=== PATIENT | female | born 1935 | race Caucasian/White ===

== ENCOUNTER 2019-08-22 10:48 | Outpatient (CLI) | payer MEDICARE, BC, SELFPAY ==
--- NOTE | 2019-08-22 10:58 | MM_ITS ---
WS: [id number] LEFT DIGITAL MAMMOGRAPHY WITH CAD CLINICAL INFORMATION: HX OF BREAST CA (RT MAST). Prior right mastectomy. COMPARISON: July 29, 2018 TECHNIQUE: 3 views of the left breast were obtained. FINDINGS: The left breast is composed of heterogeneous fibroglandular density tissue, which can limit the detec tion of small underlying mass lesions. A few stable calcifications. No suspicious focal mass, asymmetry, calcifications, or architectural distortion. No evidence of zoey gnancy. MM/[place] [address] IMPRESSION: BI-RADS: 2-Benign FOLLOW UP: 1 Year Follow-up Recommend return to annual diagnostic mammography.
[2019-08-22 11:24] LABS: Basophils # 0.1 10^3/uL (0.0-0.1); Basophils % 1.5 %; Eosinophils # 0.2 10^3/uL (0.0-0.8); Eosinophils % 3.5 %; Hematocrit 43.8 % (37.0-47.0); Hemoglobin 13.7 g/dL (11.5-15.3); Lymphocytes # 1.3 10^3/uL (0.8-4.8); Lymphocytes % 19.2 %; Mean Corpuscular HGB Conc 31.3 g/dL (30.0-36.0); Mean Corpuscular Hemoglobin 31.5 pg (28.0-34.0); Mean Corpuscular Volume 100.7 fL (81-99); Mean Platelet Volume 10.3 fL (7.4-10.4); Monocytes # 0.4 10^3/uL (0.2-0.9); Monocytes % 6.2 %; Neutrophils # 4.7 10^3/uL (1.8-7.7); Neutrophils % 69.3 %; Nucleated Red Blood Cells % 0 %; Platelet Count 194 10^3/cmm (130-400); Red Blood Count 4.35 10^6/uL (4.1-5.3); Red Cell Distribution Width 11.9 % (12.1-15.1); White Blood Count 6.8 10^3/uL (4.0-10.0)
[2019-08-22 11:46] LABS: Alanine Aminotransferase 11 U/L (0-33); Alkaline Phosphatase 99 IU/L (35-105); Anion Gap 15.8 (5-19); Aspartate Amino Transferase 19 U/L (0-32); Blood Urea Nitrogen 13 mg/dL (8-23); Carbon Dioxide 25 mmol/L (22-29); Chloride 102 mmol/L (98-107); Globulin 3.5 g/dL (1.3-4.6); Glucose 123 mg/dL (65-115); Potassium 3.8 mmol/L (3.5-5.1); Sodium 139 mmol/L (136-145); Total Bilirubin 0.3 mg/dL (0.15-1.2); Total Protein 7.5 g/dL (6.6-8.7)
== END 2019-08-22 10:49 | disposition home or self-care (01) ==
LOC: ONCMED 10:54
PROVIDERS: Family Provider Family Medicine; PCP Family Medicine; Visit Provider Internal Medicine Medical Oncology
DX: Z85.3 Personal history of malignant neoplasm of breast (principal); Z90.11 Acquired absence of right breast and nipple; J43.9 Emphysema, unspecified; R91.8 Other nonspecific abnormal finding of lung field
CPT/HCPCS: 36415; 71250; 77065; 80053; 85025

== ENCOUNTER 2019-08-22 12:34 | Outpatient (CLI) | payer MEDICARE, BC, SELFPAY ==
--- NOTE | 2019-08-22 12:43 | CT_ITS ---
WS: [id number] CT CHEST WITHOUT INTRAVENOUS CONTRAST HISTORY: PULMONARY NODULES, BREAST CANCER TECHNIQUE: Contiguous 5 mm axial imaging performed on the thorax. Coronal and sagittal reformats are submitted. All CT scans at [facility] use at least one of these dose optimization techniq ues: automated exposure control; mA and/or kV adjustment per patient size (includes targeted exams wh ere dose is matched to clinical indication); or iterative reconstruction. CONTRAST: None DLP: 535.34 mGycm COMPARISON: 08/02/2018, 07/13/2017 and 07/14/2016 Lungs and central airway: Marked pulmonary hyperinflation from emphysema. Bandlike area of atelectasi s at the LEFT apex is stable. Slightly lobulated solid nodule in the RIGHT upper lobe measures 18 x 1 9 mm and has been stable over multiple prior examinations. There are additional smaller scattered pul monary nodules which are all stable. No new nodule or pneumonia. Pleura: Normal. No pleural effusion. Heart and pericardium: Normal size heart. No pericardial effusion. Mediastinum and annabella: No mediastinum or hilar adenopathy. Vessels: Mild atherosclerosis aorta. Aorta is ectatic without aneurysmal dilatation. Pulmonary artery size is equal to the aorta. Chest wall and lower neck: Fullness in the RIGHT neck may be a small thyroid nodule. Similar to prior studies. Prior RIGHT mastectomy and axillary janine dissection. Upper abdomen: Proximal aortic stent graft is identified. No adrenal mass. Exophytic cyst from the LE FT kidney is unchanged in size. Visualized liver is negative. Osseous structures: Increase in thoracic kyphosis. No osteoblastic or osteolytic bone disease. CT/CT chest wo con [id number] IMPRESSION: 1. Long-term stability of multiple bilateral pulmonary nodules. Largest in the RIGHT upper lobe measures 18 x 19 mm. 2. Chronic emphysema. 3. Prior RIGHT mastectomy.
== END 2019-08-22 12:35 | disposition home or self-care (01) ==
LOC: RADWPI 12:41
PROVIDERS: Family Provider Family Medicine; PCP Family Medicine; Visit Provider Internal Medicine Medical Oncology
DX: J43.9 Emphysema, unspecified (principal); R91.8 Other nonspecific abnormal finding of lung field; Z85.3 Personal history of malignant neoplasm of breast; Z90.11 Acquired absence of right breast and nipple
CPT/HCPCS: 71250

== ENCOUNTER 2019-08-27 08:39 | Outpatient (CLI) | payer MEDICARE, BC, SELFPAY ==
--- NOTE | 2019-08-31 08:34 | ONC FU_ITS ---
Dr. Frazier Patient Follow-Up Note Patient: Rosaura Shanks Unit #: [id number]: 1935 Dicatated By: Carroll Frazier M.D.Date of Visit:Aug 27, 2019 Onc Med Follow-up/Prog Note Chief Complaint: Breast cancer/pulmonary nodule. History of Present Illness: This is an 84 year-old woman with grade 3 infiltrating lobular carcinoma of the right breast, stage IIIA (T3, pN1a, M0), ER/WV positive, initially treated in 2001. I had seen her in June 2014 after she had been found to have a nodule in the upper lobe of the right lung. She had undergone right modified mastectomy in January 2002. She was given adjuvant chemotherapy, which I had suspected was 4 cycles of Adriamycin/cyclophosphamide, though I did not have records to verify that. She was then given prophylactic chest wall radiation. I do not believe she was given any adjuvant hormonal therapy. During followup there had been no evidence of recurrence. She was noted to have a small pulmonary nodule on chest x-ray in 2001, but that was stable from previous studies. In 2013 she was found to have an abdominal aortic aneurysm. A CT angiogram in March 2014 showed a large infrarenal abdominal aortic saccular aneurysm measuring 5.7 x 5.4 cm. It extended for a length of 9.7 cm. There was no evidence of aneurysmal leak or rupture. She was referred to Dr. Kelly Huffman in [place] for further management of the aneurysm, and she subsequently was found on chest x-ray to have a right upper lobe lung mass measuring 2.7 cm. She then had further evaluation with PET/CT on 07/04/2014. That study also confirmed a 2.7 cm mass in the medial right lung apex. It showed low-grade FDG uptake with SUV 1.1. It was felt to be most consistent with metastasis from low grade breast carcinoma. There were no other areas of abnormal uptake on that study. Given the high risk associated with the aneurysm, I did recommend that she have that treated prior to any further evaluation for the pulmonary nodule. She had surgery in August 2014 which apparently included a graft and 2 stents. She tolerated it well. A follow-up chest CT on 12/30/2014 showed persistent right upper lobe mass lesion measuring 1.9 x 2 x 2.4 cm. It did appear stable compared to the PET/CT in June 2014. A peripheral subpleural nodule in the right upper lobe measuring 5 mm and a 6.6 mm right middle lobe nodule also appeared stable. At that point she remained on observation/expectant management. She had followup CT scans in June 2015 and again in December 2015 with no change in the noncalcified right upper lobe pulmonary nodules. Her other medical illnesses include hypertension, hypercholesterolemia, degenerative arthritis, and osteoporosis. She also has COPD. She underwent resection of a parathyroid adenoma in 2002. Her only other prior surgery was a hysterectomy with bilateral salpingo-oophorectomy in 1981. In May 2016 she had Mohs surgery performed with grafting for a skin cancer on her forehead. She has a history of smoking for 50 years, previously up to 2 packs of cigarettes daily. She had cut down to 1/2 pack daily. INTERIM HISTORY: Surveillance CT scan of the chest performed 07/14/2016 showed stable right upper lobe pulmonary nodule measuring 2.0 x 1.7 cm. The remaining scattered calcified and noncalcified subcentimeter pulmonary nodules were stable also. There were no new nodules noted. There was stable marked ectasia and atherosclerosis of the thoracic aorta. Repeat chest CT on 07/13/2017 showed stable noncalcified right upper lobe nodule measuring 1.9 x 2.1 cm. The 6 mm right middle lobe nodule and the 3.6 mm subpleural nodule in the right middle lobe also appeared stable. Her repeat chest CT on 08/02/2018 showed long-term stability of noncalcified pulmonary nodules, including the right upper lobe nodule which measured 1.8 x 2.0 cm. There also was evidence of severe emphysema. She continued on observation/expectant management. Her chest CT on 08/22/2019 showed marked pulmonary hyperinflation from emphysema. Bandlike atelectasis at the left apex appeared stable. The slightly lobulated solid nodule in the right upper lobe measured 18 x 19 mm and appeared stable over multiple prior studies. Additional smaller scattered pulmonary nodules also appeared stable. There was no mediastinal or hilar adenopathy noted. She is seen for a followup visit. She has been feeling pretty good generally other than she had been sick for 3 to 4 weeks with a cold, and with that illness her cough had been worse, though nonproductive. Her energy is so-so. She still has normal activity. ECOG score is 0. She has good appetite, but her weight is down a few pounds. She has no fever or night sweats. She was having sinus drainage, that has resolved. She still has some cough. She has shortness of breath, but that is about the same. She does not complain of chest pain. She has no GI or complaints other than some constipation, which she manages adequately with MiraLAX. She says her right collarbone recently has been sore. She has no other joint or bone pain. She complains that she has always had headaches, and those are no worse. She has neuropathy in her feet, also unchanged. Medications: AmLODIPine Besylate 1 (5 mg) Tablet Oral daily, Aspirin 1 (81 mg) Tablet Oral daily, Atorvastatin Calcium 1 (40 mg) Tablet Oral daily, B-12 1 (1000 mcg) Tablet Oral q on Every Other Day, Calcium-Carb 600 1 (600 mg) Tablet Oral b.i.d., Lisinopril 1 (40 mg) Tablet Oral daily, Metoprolol Succinate ER 1 Tablet Tablet SR 24 HR Oral b.i.d., Prolia (60 mg/mL) Subcutaneous Take as Directed Allergies: No Known Allergies. Review of Systems: Constitutional - Her energy level is good. She is able to do all her normal daily activities. Appetite is good. Her weight is down a few pounds. No fever, chills, hot flashes, or night sweats. ECOG score is 0, ENMT - No current sinus congestion/drainage, but she does report having recent cold symptoms. No mouth sores. No sore throat or difficulty swallowing, Hematologic/Lymphatic - She bruises easily, Respiratory - She has some shortness of breath with activity. She has a non-productive cough. No pleuritic pain or hemoptysis, Cardiovascular - No angina pain. No palpitations, Gastrointestinal - No nausea or vomiting. No heartburn or acid reflux. No diarrhea. She has constipation but it is well controlled with Miralax. No blood in the stool or black stools, Genitourinary (F) - No dysuria or hematuria. No urinary frequency. No urgency or incontinence, Musculoskeletal - She has some soreness to her right collar bone, which started a few weeks ago. Denies any injury, Integumentary - No skin complications, Neurologic - She has chronic headaches. No dizziness. She has neuropathy in her feet, Psychiatric - No anxiety or depression. No insomnia. Vital Signs: Performed on Aug 27, 2019 08:54 Height - 62.00 in Weight - 106.6 lbs (LOW) BSA - 1.46 sq.m BMI - 19.50 Temperature - 97.2 F (LOW) Pulse - 60 /min Respiration - 19 /min BP - 123/79 mm(hg) O2 Sat - 92 % (LOW) Pain - 0 Physical Examination: Constitutional - She looks pretty good generally, Eyes - Sclerae nonicteric. Conjunctivae clear, ENMT - No lesions noted in the oral cavity, Hematologic/Lymphatic - No cervical, clavicular, or axillary adenopathy, Respiratory - Lungs sound clear with diminished air movement, Cardiovascular - Heart rhythm is regular. There is no murmur, gallop, or rub noted, Abdomen - Soft. Liver and spleen are not enlarged. There is no abdominal mass or ascites noted. There is no inguinal adenopathy, Extremities - No edema, Neurologic - No focal neurologic deficits noted. Lab/Imaging: Test performed on Aug 22, 2019 11:05 Sodium 139 mmol/L Potassium 3.8 mmol/L Chloride 102 mmol/L CO2 25 mmol/L Anion Gap 15.8 BUN 13 mg/dL Creatinine 0.7 mg/dL Cr Clearance (Est) 48.6300 mL/min Glucose 123 mg/dL Calcium 10.0 mg/dL Protein, Total 7.5 g/dL Albumin 4.0 g/dL Globulin 3.5 g/dL Bilirubin, Total 0.3 mg/dL ALT (SGPT) 11 U/L AST (SGOT) 19 U/L Alkaline Phosphatase 99 IU/L WBC 6.8 10 3/uL RBC 4.35 10 6/uL HGB 13.7 g/dL HCT 43.8 % MCV 100.7 fL MCH 31.5 pg MCHC 31.3 g/dL RDW 11.9 % Platelet Count 194 10 3/cmm MPV 10.3 fL Neutrophils 4.7 10 3/uL Lymphocytes 1.3 10 3/uL Monocytes 0.4 10 3/uL Eosinophils 0.2 10 3/uL Basophils 0.1 10 3/uL Neutrophil % 69.3 % Lymphocyte % 19.2 % Monocyte % 6.2 % Eosinophil % 3.5 % Basophils % 1.5 % Impression: 1. Patient has grade 3 infiltrating lobular carcinoma the right breast, stage IIIA, ER/WV positive. Her treatment included right modified radical mastectomy in January 2002 followed by adjuvant chemotherapy and prophylactic chest wall radiation. Thus far there has been no documented recurrence. 2. She was found to have a large abdominal aortic aneurysm in March 2014. She underwent surgery for the aneurysm in August 2014. 3. During evaluation for the aneurysm she was found to have a right upper lobe pulmonary nodule. This showed low grade FDG uptake by PET. There were no other areas of abnormal uptake on that study, but there were additional, smaller pulmonary nodules present. The appearance was felt to be most consistent with a low-grade metastasis. She has been managed expectantly, and on follow-up studies the pulmonary nodule has remained stable. Her other medical illnesses include: 4. Hypertension. 5. Hyperlipidemia. 6. Degenerative arthritis. 7. Osteoporosis. 8. She underwent resection of a parathyroid adenoma in 2002. 9. She has nicotine dependence (cigarettes). During follow-up her surveillance CT scans have shown no change in the right upper lobe pulmonary nodules or other smaller scattered nodules, now over a time period of 5 years. During this time her clinical status has also remained stable. As such, the likelihood of malignancy is extremely low. Plan: She remains on observation/expectant management. At this point she can just continue her regular follow-up with Dr. Felton. I do not think that any additional surveillance imaging is necessary. Other than continuing her regular yearly mammogram, she should have further CT scanning only as indicated based on symptoms. I will see her again only as needed. Signed By: Carroll Frazier M.D. <<Signature on File>>
== END 2019-08-27 08:40 | disposition home or self-care (01) ==
LOC: ONCMED 08:45
PROVIDERS: Family Provider Family Medicine; PCP Family Medicine; Visit Provider Internal Medicine Medical Oncology
DX: Z08 Encounter for follow-up examination after completed treatment for malignant neoplasm (principal); Z85.3 Personal history of malignant neoplasm of breast; R91.8 Other nonspecific abnormal finding of lung field; J44.9 Chronic obstructive pulmonary disease, unspecified; I10 Essential (primary) hypertension; E78.5 Hyperlipidemia, unspecified; M19.90 Unspecified osteoarthritis, unspecified site; M81.0 Age-related osteoporosis without current pathological fracture; F17.210 Nicotine dependence, cigarettes, uncomplicated; Z79.82 Long term (current) use of aspirin; Z79.899 Other long term (current) drug therapy; Z90.11 Acquired absence of right breast and nipple; Z92.21 Personal history of antineoplastic chemotherapy; Z92.3 Personal history of irradiation
CPT/HCPCS: G0463

== ENCOUNTER 2019-09-25 09:59 | Outpatient (CLI) | payer MEDICARE, BC, SELFPAY ==
[2019-09-25 10:00] VITALS: BP 141/76; PULSE 54; RESP 16; TEMP 36.5; O2SAT 93
[2019-09-25] MEDS: denosumab 60 mg SDV SUBCUT (10:11)
[2019-09-25 10:18] VITALS: BP 141/84; PULSE 54; RESP 16; TEMP 37; O2SAT 93
== END 2019-09-25 10:00 | disposition home or self-care (01) ==
LOC: RHEOACUTE 10:01
PROVIDERS: Family Provider Family Medicine; PCP Family Medicine; Visit Provider Internal Medicine Rheumatology
DX: M81.0 Age-related osteoporosis without current pathological fracture (principal)
CPT/HCPCS: 96372; J0897

== ENCOUNTER 2019-12-05 14:50 | Outpatient (CLI) | payer MEDICARE, BC, SELFPAY ==
--- NOTE | 2019-12-05 15:23 | XR_ITS ---
WS: [id number] SCREENING DEXA SCAN [employer] HISTORY: 84 years old Female with OSTEOPOROSIS COMPARISON: None available. FINDINGS: The L1-L4 bone mineral density measures 1.187 g/cm2. This corresponds to a T score of 0.1 and Z score of 2.5. Left femoral neck bone mineral density measures 0.647 g/cm2. This corresponds to T score of -2.9 and Z score of -0.3. Right femoral neck bone mineral density measures 0.648 g/cm2. This corresponds to a T score of -2.9 a nd Z score of -0.3. Mean femoral neck bone mineral density measures 0.647 g/cm2. This corresponds to a T score of -2.9 an d Z score of -0.3. XR/XR DEXA axial skeleton* [id number] IMPRESSION: Patient's FRAX calculated 10 year probability for major osteoporotic fracture i s 24.0% and osteoporotic hip fracture is 14.7%. Osteopenia.
== END 2019-12-05 14:51 | disposition home or self-care (01) ==
LOC: RADWPI 14:54
PROVIDERS: Family Provider Family Medicine; PCP Family Medicine; Visit Provider Family Medicine
DX: M81.0 Age-related osteoporosis without current pathological fracture (principal)
CPT/HCPCS: 77080

== ENCOUNTER 2020-03-18 09:04 | Outpatient (CLI) | payer MEDICARE, BC, SELFPAY ==
--- NOTE | 2020-03-18 09:10 | MR_ITS ---
WS: [id number] MRI BRAIN WITH AND WITHOUT CONTRAST HISTORY: NEOPLASM OF UNCERTAIN BEHAVIOR OF SKIN COMPARISON: None available. TECHNIQUE: Multiplanar imaging performed through the brain with Prohance 9 ml's IV. No acute infarcts are seen. Nichols-white matter differentiation is well preserved. Moderate chronic dena rovascular ischemic changes in the periventricular white matter. No appreciable temporal region abnor mality. No susceptibility artifacts or prior lacunar infarcts. Ventricles and extra-axial spaces are normal. Clivus and pituitary gland are normal. Visualized posterior fossa and brainstem are also normal. Postcontrast images are negative for masses or vascular malformations. Dural venous sinuses are normal. Paranasal sinuses: Well aerated with no significant disease. Mastoid air cells: Normal. Calvarium and scalp: Normal. MR/MR head wo/w con [id number] IMPRESSION: 1. No metastatic disease or enhancing masses. 2. Moderate chronic microvascular ischemic disease.
[2020-03-18 09:54] LABS: Blood Urea Nitrogen 13 mg/dL (8-23)
== END 2020-03-18 09:05 | disposition home or self-care (01) ==
PROVIDERS: PCP Family Medicine; Visit Provider Specialist
DX: D48.5 Neoplasm of uncertain behavior of skin (principal); I67.82 Cerebral ischemia
CPT/HCPCS: 36415; 70553; 82565; 84520; A9579

== ENCOUNTER 2020-04-29 12:23 | Outpatient (CLI) | payer MEDICARE, BC, SELFPAY ==
--- NOTE | 2020-04-29 14:13 | N.ONRAD NP_ITS ---
Radiation Oncology Consult Patient: Rosaura Shanks MR#: [id number] : 1935> Attending Physician: Dr. Edward Turpin Date of Service: 04/29/2020 Rosaura Shanks was seen in consultation this afternoon for evaluation regarding adjuvant radiotherapy for the management of her recently diagnosed basal cell carcinoma. She presented to the otolaryngology office with a complaint of decreased hearing in the left ear. Otoscopic examination did not find a mass within the external auditory canal. An MRI of the brain ordered on March 18, 2020 did not demonstrate evidence of metastatic disease. A biopsy performed by Joe Massey M.D. on March 26, 2020 diagnosed a nodular type basal cell carcinoma extending to the base and lateral edges. I have been asked to evaluate the patient for definitive radiotherapy. The patient's past medical history is significant for abdominal aortic aneurysm, breast cancer, COPD, hyperlipidemia, hypertension, and osteoarthritis and skin cancer (basal cell carcinoma). Her previous surgical interventions include cataract surgery, Mohs microsurgery, parathyroidectomy, and mastectomy (right breast). I have reviewed the patient's medication profile which is available in the electronic medical record. She denied any drug allergies. The patient's family history was unremarkable for cutaneous malignancies or xeroderma pigmentosum. The patient was accompanied to this consultation by her daughter. She described a tobacco habit tobacco habit (1 pack/day for 62 years) and denied alcohol intake. On review of systems, she did not report any constitutional complaints including fevers of unknown origin or unintentional weight loss. She described reduced hearing in the left ear but no other head neck complaints including diplopia, tinnitus, epistaxis, or dysphagia. She denied any cardiopulmonary symptoms such as angina, or palpitations. She does have a chronic cough. On gastrointestinal review, she disavowed nausea or diarrhea. On musculoskeletal review, she did not relate any bone pain or muscle weakness. There were no neurological symptoms such as headaches, paresthesias, or seizures. On physical examination, the patient has an ECOG performance status of 0. She was 5 feet 2 inches tall and weighed 106 pounds. The temperature was 97.2???F. The blood pressure was 133/79 mmHg. The pulse was 61 bpm and the respiratory rate of was 22. The head was normocephalic and atraumatic. The oral cavity had moist mucous membranes and no oropharyngeal exudate was present. The external auditory canal was partially obstructed with an erythematous lesion approximately 1 cm into the canal. There was no pre-auricular nor post auricular adenopathy. I did not date any cervical adenopathy or thyromegaly. Normal fremitus was noted. Bronchovesicular breath sounds were auscultated in the posterior lung abreu. Bilateral inspiratory wheezes were present. Cardiac sounds were regular in rate and rhythm but distant. No JVD noted. The abdomen had active bowel sounds. No tenderness to palpation. No evidence of organomegaly. No muscle weakness upon testing. No tenderness to deep palpation along the axial skeleton. Cranial nerves II through XII were intact. Gait was normal. In summary, the patient presented to the otolaryngology office with a complaint of decreased hearing in the left ear. Otoscopic examination did not find a mass within the external auditory canal. An MRI of the brain ordered on March 18, 2020 did not demonstrate evidence of metastatic disease. A biopsy performed by Joe Massey M.D. on March 26, 2020 diagnosed a nodular type basal cell carcinoma extending to the base and lateral edges. I have been asked to evaluate the patient for definitive radiotherapy. I discussed with the patient the potential role of radiotherapy. I also expressed concern regarding significant hearing loss given the location within the external auditory canal. I would like to request an evaluation with the department of radiation oncology at [facility] in [facility] for which the patient and her would like to discuss to making a decision.. Signed by: Dr. Edward Turpin 04/29/2020 2:13:01 PM
== END 2020-04-29 12:24 | disposition home or self-care (01) ==
LOC: ONCMED 12:30
PROVIDERS: PCP Family Medicine; Visit Provider Radiology Radiation Oncology
DX: C44.219 Basal cell carcinoma of skin of left ear and external auricular canal (principal); H91.92 Unspecified hearing loss, left ear; E78.5 Hyperlipidemia, unspecified; I10 Essential (primary) hypertension; I71.4 Abdominal aortic aneurysm, without rupture; J44.9 Chronic obstructive pulmonary disease, unspecified; F17.210 Nicotine dependence, cigarettes, uncomplicated; M19.90 Unspecified osteoarthritis, unspecified site; Z85.3 Personal history of malignant neoplasm of breast
CPT/HCPCS: 99203; 99213

== ENCOUNTER 2020-06-24 14:40 | Outpatient (CLI) | payer MEDICARE, BC, SELFPAY ==
[2020-06-24 14:55] VITALS: BP 150/84; PULSE 60; RESP 16; TEMP 36.1; O2SAT 92
[2020-06-24 15:00] VITALS: BMI 19.8
[2020-06-24] MEDS: denosumab 60 mg SDV SUBCUT (15:03)
--- NOTE | 2020-06-24 15:10 | PC.NURSE ---
1455 Pt arrived A&Ox4. Denies pain, signs or symptoms of infection, cough. Denies medical history. Denies respiratory, heart, neuro history.
--- NOTE | 2020-06-24 15:11 | PC.NURSE ---
Pt ambulated to bathroom and returned from bathroom wheezing. States she smoked a cig prior to arrival. Pt denies wheezing. Audible wheezing noted. Pox 94 on room air. Pt states she takes inhalers and numerous medications but that breathing is better than it used to be. When questioned, pt verbalized frustration with waiting for Prolia appt and waiting after injection. Discussed at length.
--- NOTE | 2020-06-24 15:31 | PC.NURSE ---
Pt denies SOB or pain. States she just wants to go.
[2020-06-24 15:32] VITALS: BP 141/87; PULSE 56; RESP 18; TEMP 36.2; O2SAT 94
== END 2020-06-24 14:41 | disposition home or self-care (01) ==
LOC: RHEOACUTE 14:41
PROVIDERS: PCP Family Medicine; Visit Provider Internal Medicine Rheumatology
DX: M81.0 Age-related osteoporosis without current pathological fracture (principal)
CPT/HCPCS: 96372; J0897

== ENCOUNTER 2020-08-11 15:47 | Inpatient (IN) | payer MEDICARE, BC, SELFPAY ==
[2020-08-11] VITALS (56 sets, daily range): BP systolic 123–148; BP diastolic 72–102; PULSE 54–133; RESP 16–35; TEMP 37.1–37.3; O2SAT 79–100; BMI 19.8
--- NOTE | 2020-08-11 15:59 | XR_ITS ---
WS: [id number] Exam: XR chest 1V portable [id number] Date/Time of Exam: 08/11/2020 4:09 PM Reason For Exam: dyspnea/cough Comparison 08/11/2020. Patchy infiltrates again noted in the mid and lower right lung are unchanged. The lungs are hyperinfl ated. Small right pleural effusion. 2 cm nodular density seen along the right margin of the superior mediastinum is unchanged since multiple prior exams. Status post right mastectomy with surgical clips along the right axilla. Bony structures are intact. The mediastinum is not widened. Surgical clips i n the base of the neck on the left. Aortic Endo stent partially visualized in the upper abdomen. XR/XR chest 1V portable [id number] IMPRESSION: 1. Patchy infiltrates in the mid and lower right lung consistent with pneumonia showing little change. Small right pleural effusion. 2. Pulmonary hyperinflation and emphysematous changes. 3. Additional chronic findings in the chest as detailed above.
--- NOTE | 2020-08-11 15:59 | ECG_ITS ---
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
--- NOTE | 2020-08-11 16:00 | XR_ITS ---
WS: [id number] Exam: XR thoracic spine 3V* [id number] Date/Time of Exam: 08/11/2020 4:09 PM Reason For Exam: back pain/hx breast Ca Comparison 12/11/2018. No fracture or dislocation. Osteopenia. Slightly increased thoracic kyphosis noted. Slight dextroscol iosis. Paraspinal soft tissues are unremarkable. Incidentally noted are small posterior pleural effus ions. Abdominal aortic Endo stent noted. XR/XR thoracic spine 3V* [id number] IMPRESSION: 1. Minimal degenerative change and osteopenia. 2. No fracture, bone destruction or malalignment. 3. Additional minor findings as detailed above.
--- NOTE | 2020-08-11 16:12 | W.ED.SOB ---
HPI - SOB/Dyspnea General: Chief Complaint: Shortness of Breath/Dyspnea Stated Complaint: fluid on lungs Time Seen by Provider: 08/11/20 15:58 History of Present Illness: HPI Narrative: 85-year-old female who presents emergency room with complaint of shortness of breath tachypnea progressively worsening over the last several days. She was at Dr. Felton's office for primary care doctor today and found to have a room air sat in the low 70s and sent to the emergency room for further work-up. With 3 L/min her respiratory rate and her oxygen sat both improved with her sats going up to 95 to 97%. When I came in the room in the ER she was on 2 L/min was satting in the mid to upper 80s and was conversationally dyspneic when turned up to 4 L she improved to upper 90s. 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 Chest x-ray at her primary care doctor showed a right small right pleural effusion. She has a pleuritic-like chest pain that is worse with deep breath and with cough. She has a nonproductive cough has not had a fever at all. Dr. Felton reported usually her baseline mental status is very good she has extremely good cognition and awareness today she was little more confused and lethargic according to him. She tells me she has some chest pain earlier today with rest but that has resolved. She not get diaphoretic with it. MD elicited complaint: shortness of breath and cough Onset (ago): day(s) Timing: intermittent Severity: moderate Exacerbating factors: exertion, movement and inspiration Relieving factors: oxygen and rest Known history of: other (Breast CA) Associated symptoms: Reports nausea; Deny abdominal pain, chest congestion, chest pain, cough, diaphoresis, dizziness, extremity pain, fever(s), hemoptysis, lightheadedness, myalgias, orthopnea, palpitations, paresthesias, polydipsia, polyuria, rash, sense of impending doom, syncope or vomiting Treatment prior to arrival: oxygen Review of Systems Const: Denies: fever(s) or diaphoresis ENMT: Denies: throat pain, ear or mastoid pain, nasal discharge or nasal congestion Card: Denies: chest pain, palpitations, lightheadedness, syncope or orthopnea Resp: Denies: hemoptysis or chest congestion GI: Reports: nausea; Denies: abdominal pain or vomiting : Denies: flank pain, difficulty voiding, dysuria, urinary frequency or urinary urgency Musc: Denies: extremity pain Skin/Breast: Denies: rash or pruritus Neuro: Denies: dizziness Endo: Denies: polyuria or polydipsia PFSH ED PFSH: Medical History (Updated 08/13/20 @ 15:22 by Freddy Orourke DO) Aneurysm, thoracic aortic s/p coiling 2017 Breast cancer Hyperlipidemia Hypertension Social History (Updated 08/11/20 @ 19:13 by Sophie Pruitt MD) Smoking and tobacco status: never smoked Physical Exam Const: COMMON NORMALS: no acute distress GENERAL APPEARANCE: cooperative and comfortable ORIENTATION/CONSCIOUSNESS: Yes awake, Yes oriented to person, Yes oriented to place and Yes oriented to time HENMT: COMMON NORMALS: normocephalic, atraumatic, hearing grossly normal bilaterally, external ears normal, EAC's normal, TM's normal bilaterally, Normal nasal mucous membranes and turbinates present, moist oral mucous membranes and oropharynx normal HEAD & SCALP: normocephalic and atraumatic NOSE: Normal nasal mucous membranes and turbinates present EXTERNAL EAR: Yes external ears normal EXTERNAL AUDITORY CANAL: EAC's normal TYMPANIC MEMBRANE: TM's normal bilaterally Eye: COMMON NORMALS: Equal, round and reactive pupils present, EOMs intact bilaterally, conjunctivae normal and no scleral icterus CONJUNCTIVA: Yes conjunctivae normal PUPIL: Yes Equal, round and reactive pupils present Neck/C-Spine: COMMON NORMALS: full ROM, no lymphadenopathy, supple and no JVD Lymph: LYMPHATIC: no lymphadenopathy noted and no lymphedema noted Resp: COMMON NORMALS: No use of accessory muscles EFFORT & INSPECTION: Yes tachypneic AUSCULTATION: rhonchi, wheezes and diminished lung sounds Cardio: COMMON NORMALS: no JVD, regular rate, regular rhythm and No murmurs present (Cardio) RATE: regular rate RHYTHM: regular rhythm GI: COMMON NORMALS: Soft to palpation and No hepatosplenomegaly present AUSCULTATION: Yes normoactive bowel sounds PALPATION: Yes Soft to palpation, No Tenderness to palpation present (GI), No Guarding due to palpation present (GI) and Yes No hepatosplenomegaly present Extremity: COMMON NORMALS: normal to inspection, capillary refill normal, no clubbing, cyanosis or edema, no calf tenderness and no pedal edema Neuro: SENSORIUM/ORIENTATION: Yes oriented to person, Yes oriented to place and Yes oriented to time Skin: COMMON NORMALS: no rashes or lesions noted GENERAL SKIN EXAM: no rashes or lesions noted Course Vital Signs: Vital signs: Vital Signs Temperature 97.2 F L 08/14/20 03:53 Pulse Rate 60 08/14/20 05:31 Respiratory Rate 20 H 08/14/20 03:53 Blood Pressure 138/76 08/14/20 03:53 Pulse Oximetry 95 08/14/20 03:53 MDM - SOB/Dyspnea MDM Narrative: Medical decision making narrative: Patient positive for Covid with increasing oxygen needs. We will go ahead and admit to cover for secondary pneumonia start remdesivir dexamethasone discussed with Dr. Pruitt orders have been written. Lab Data: Labs: Lab Results 08/11/20 08/11/20 08/11/20 Range/Units 16:16 16:16 16:16 WBC 7.5 (4.0-10.0) 10^3/ uL RBC 4.53 (4.1-5.3) 10^6/u L Hgb 13.6 (11.5-15.3) g/dL Hct 43.3 (37.0-47.0) % MCV 95.6 (81-99) fL MCH 30.0 (28.0-34.0) pg MCHC 31.4 (30.0-36.0) g/dL RDW 12.5 (12.1-15.1) % Plt Count 302 (130-400) 10^3/c mm MPV 9.7 (7.4-10.4) fL Neut % (Auto) 82.2 % Lymph % (Auto) 7.3 % Clay % (Auto) 7.9 % Eos % (Auto) 0.0 % Baso % (Auto) 0.5 % Neut # (Auto) 6.16 (1.8-7.7) 10^3/u L Lymph # (Auto) 0.6 L (0.8-4.8) 10^3/u L Clay # (Auto) 0.6 (0.2-0.9) 10^3/u L Eos # (Auto) 0.0 (0.0-0.8) 10^3/u L Baso # (Auto) 0.0 (0.0-0.1) 10^3/u L Nucleated RBC % (a uto) 0 % Nucleated RBCs # 0.0 /100WBC D-Dimer (0-0.59) ug/mIFE U Specimen Type Sample Site ABG pH (7.35-7.45) ABG pCO2 (35-45) mmHg ABG pO2 (80.0-100.0) mmH g ABG HCO3 (22-26) mmol/L ABG O2 Saturation ABG Base Excess (-2.0-2.0) mmol/ L Jaleel Test A-a O2 Gradient (5-10) mmHg Hematocrit (37-47) % Hgb O2 Saturation (95-100) % Carboxyhemoglobin (0.4-20.1) %THgb Methemoglobin (0.4-1.5) % Total Hemoglobin (12-16) g/dL Ionized Calcium (1.1-1.4) mmol/L O2 Delivery Device O2 Liters/Min % FiO2 % Assistant Front Office Manager ID Sodium 142 (136-145) mmol/L Potassium 4.2 (3.5-5.1) mmol/L Chloride 102 (98-107) mmol/L Carbon Dioxide 28 (22-29) mmol/L Anion Gap 16.2 (5-19) BUN 30 H (8-23) mg/dL Creatinine 0.9 (0.5-0.9) mg/dL GFR Calculation Not Reportable Glucose 110 (65-115) mg/dL Calculated Osmolal ity 301 H (285-295) mOsm/k g Calcium 8.6 (8.5-10.5) mg/dL Total Bilirubin 0.7 (0.15-1.2) mg/dL AST 43 H (0-32) U/L ALT 28 (0-33) U/L Alkaline Phosphata se 88 (35-105) IU/L Troponin T Baselin e 27 H (0-10) ng/L Total Protein 7.5 (6.6-8.7) g/dL Albumin 3.6 (3.5-5.2) g/dL Globulin 3.9 (1.3-4.6) g/dL Urine Color (Yellow) Urine Appearance (CLEAR) Urine pH (5-7) Ur Specific Gravit y (1.005-1.030) Urine Protein (Negative) Urine Glucose (UA) (Normal) Urine Ketones (Negative) Urine Blood (Negative) Urine Nitrate (Negative) Urine Bilirubin (Negative) Urine Urobilinogen (Negative) mg/dL Ur Leukocyte Rosa M ase (Negative) Urine RBC (0-2) /hpf Urine WBC (0-5) /hpf Ur Squamous Epith Cells (0-5) /hpf Ur Renal Epithelia l Cell /hpf Amorphous Sediment /hpf Urine Bacteria (NONE) /hpf SARS-CoV-2 Ag (Rap id) (Negative) 08/11/20 08/11/20 08/11/20 Range/Units 16:16 16:34 16:35 WBC (4.0-10.0) 10^3/ uL RBC (4.1-5.3) 10^6/u L Hgb (11.5-15.3) g/dL Hct (37.0-47.0) % MCV (81-99) fL MCH (28.0-34.0) pg MCHC (30.0-36.0) g/dL RDW (12.1-15.1) % Plt Count (130-400) 10^3/c mm MPV (7.4-10.4) fL Neut % (Auto) % Lymph % (Auto) % Clay % (Auto) % Eos % (Auto) % Baso % (Auto) % Neut # (Auto) (1.8-7.7) 10^3/u L Lymph # (Auto) (0.8-4.8) 10^3/u L Clay # (Auto) (0.2-0.9) 10^3/u L Eos # (Auto) (0.0-0.8) 10^3/u L Baso # (Auto) (0.0-0.1) 10^3/u L Nucleated RBC % (a uto) % Nucleated RBCs # /100WBC D-Dimer 4.76 H (0-0.59) ug/mIFE U Specimen Type Arterial Sample Site Radial, left ABG pH 7.49 H (7.35-7.45) ABG pCO2 38.0 (35-45) mmHg ABG pO2 69.7 L (80.0-100.0) mmH g ABG HCO3 29.2 H (22-26) mmol/L ABG O2 Saturation 95.1 ABG Base Excess 5.6 H (-2.0-2.0) mmol/ L Jaleel Test Pos A-a O2 Gradient 18.1 H (5-10) mmHg Hematocrit 39.4 (37-47) % Hgb O2 Saturation 93.2 L (95-100) % Carboxyhemoglobin 1.2 (0.4-20.1) %THgb Methemoglobin 0.8 (0.4-1.5) % Total Hemoglobin 12.9 (12-16) g/dL Ionized Calcium 1.1 (1.1-1.4) mmol/L O2 Delivery Device Nc O2 Liters/Min 4.0 % FiO2 36.0 % Assistant Front Office Manager ID Cak Sodium 144.0 H (136-145) mmol/L Potassium 3.4 L (3.5-5.1) mmol/L Chloride (98-107) mmol/L Carbon Dioxide (22-29) mmol/L Anion Gap (5-19) BUN (8-23) mg/dL Creatinine (0.5-0.9) mg/dL GFR Calculation Glucose 112.0 (65-115) mg/dL Calculated Osmolal ity (285-295) mOsm/k g Calcium (8.5-10.5) mg/dL Total Bilirubin (0.15-1.2) mg/dL AST (0-32) U/L ALT (0-33) U/L Alkaline Phosphata se (35-105) IU/L Troponin T Baselin e (0-10) ng/L Total Protein (6.6-8.7) g/dL Albumin (3.5-5.2) g/dL Globulin (1.3-4.6) g/dL Urine Color (Yellow) Urine Appearance (CLEAR) Urine pH (5-7) Ur Specific Gravit y (1.005-1.030) Urine Protein (Negative) Urine Glucose (UA) (Normal) Urine Ketones (Negative) Urine Blood (Negative) Urine Nitrate (Negative) Urine Bilirubin (Negative) Urine Urobilinogen (Negative) mg/dL Ur Leukocyte Rosa M ase (Negative) Urine RBC (0-2) /hpf Urine WBC (0-5) /hpf Ur Squamous Epith Cells (0-5) /hpf Ur Renal Epithelia l Cell /hpf Amorphous Sediment /hpf Urine Bacteria (NONE) /hpf SARS-CoV-2 Ag (Rap id) Positive H (Negative) 08/11/20 Range/Units 17:15 WBC (4.0-10.0) 10^3/ uL RBC (4.1-5.3) 10^6/u L Hgb (11.5-15.3) g/dL Hct (37.0-47.0) % MCV (81-99) fL MCH (28.0-34.0) pg MCHC (30.0-36.0) g/dL RDW (12.1-15.1) % Plt Count (130-400) 10^3/c mm MPV (7.4-10.4) fL Neut % (Auto) % Lymph % (Auto) % Clay % (Auto) % Eos % (Auto) % Baso % (Auto) % Neut # (Auto) (1.8-7.7) 10^3/u L Lymph # (Auto) (0.8-4.8) 10^3/u L Clay # (Auto) (0.2-0.9) 10^3/u L Eos # (Auto) (0.0-0.8) 10^3/u L Baso # (Auto) (0.0-0.1) 10^3/u L Nucleated RBC % (a uto) % Nucleated RBCs # /100WBC D-Dimer (0-0.59) ug/mIFE U Specimen Type Sample Site ABG pH (7.35-7.45) ABG pCO2 (35-45) mmHg ABG pO2 (80.0-100.0) mmH g ABG HCO3 (22-26) mmol/L ABG O2 Saturation ABG Base Excess (-2.0-2.0) mmol/ L Jaleel Test A-a O2 Gradient (5-10) mmHg Hematocrit (37-47) % Hgb O2 Saturation (95-100) % Carboxyhemoglobin (0.4-20.1) %THgb Methemoglobin (0.4-1.5) % Total Hemoglobin (12-16) g/dL Ionized Calcium (1.1-1.4) mmol/L O2 Delivery Device O2 Liters/Min % FiO2 % Assistant Front Office Manager ID Sodium (136-145) mmol/L Potassium (3.5-5.1) mmol/L Chloride (98-107) mmol/L Carbon Dioxide (22-29) mmol/L Anion Gap (5-19) BUN (8-23) mg/dL Creatinine (0.5-0.9) mg/dL GFR Calculation Glucose (65-115) mg/dL Calculated Osmolal ity (285-295) mOsm/k g Calcium (8.5-10.5) mg/dL Total Bilirubin (0.15-1.2) mg/dL AST (0-32) U/L ALT (0-33) U/L Alkaline Phosphata se (35-105) IU/L Troponin T Baselin e (0-10) ng/L Total Protein (6.6-8.7) g/dL Albumin (3.5-5.2) g/dL Globulin (1.3-4.6) g/dL Urine Color Yellow (Yellow) Urine Appearance Sl hazy (CLEAR) Urine pH 5 (5-7) Ur Specific Gravit y 1.020 (1.005-1.030) Urine Protein 1+ H (Negative) Urine Glucose (UA) Norm (Normal) Urine Ketones Negative (Negative) Urine Blood 2+ H (Negative) Urine Nitrate Negative (Negative) Urine Bilirubin 1+ H (Negative) Urine Urobilinogen 4 H (Negative) mg/dL Ur Leukocyte Rosa M ase 2+ H (Negative) Urine RBC 0-4 H (0-2) /hpf Urine WBC >100 H (0-5) /hpf Ur Squamous Epith Cells 15-25 H (0-5) /hpf Ur Renal Epithelia l Cell 0-4 /hpf Amorphous Sediment 1+ /hpf Urine Bacteria 2+ H (NONE) /hpf SARS-CoV-2 Ag (Rap id) (Negative) Discharge Plan Discharge Patient Disposition: Admitted As Inpatient Admit Provider: Sophie Pruitt Clinical Impression: Pneumonia due to COVID-19 virus, Hypertension, Hyperlipidemia Condition: Stable Coding Level of Care Code ED Air Chipper for g Fwd Exam Comprehensive
[2020-08-11 16:39] LABS: Basophils % 0.5 %; Hematocrit 43.3 % (37.0-47.0); Hemoglobin 13.6 g/dL (11.5-15.3); Lymphocytes # 0.6 10^3/uL (0.8-4.8); Lymphocytes % 7.3 %; Mean Corpuscular HGB Conc 31.4 g/dL (30.0-36.0); Mean Corpuscular Volume 95.6 fL (81-99); Mean Platelet Volume 9.7 fL (7.4-10.4); Monocytes # 0.6 10^3/uL (0.2-0.9); Monocytes % 7.9 %; Neutrophils # 6.16 10^3/uL (1.8-7.7); Neutrophils % 82.2 %; Nucleated Red Blood Cells % 0 %; Platelet Count 302 10^3/cmm (130-400); Red Blood Count 4.53 10^6/uL (4.1-5.3); Red Cell Distribution Width 12.5 % (12.1-15.1); White Blood Count 7.5 10^3/uL (4.0-10.0)
[2020-08-11 16:41] LABS: ABG PH Result 7.49 (7.35-7.45); Alveolar-Arterial Oxygen Gradi 18.1 mmHg (5-10); Arterial Blood Gas Hematocrit 39.4 % (37-47); Base Excess ABG 5.6 mmol/L (-2.0-2.0); Blood Gas Allen Test Pos; Blood Gas Operator Identificat CAK; Blood Gas Sample Site Radial, left; Blood Gas Sample Type Arterial; Carboxyhemoglobin 1.2 %THgb (0.4-20.1); HCO3 ABG 29.2 mmol/L (22-26); HGB O2 Sat 93.2 % (95-100); Ionized Calcium Level - ABG 1.1 mmol/L (1.1-1.4); Methemoglobin 0.8 % (0.4-1.5); Oxygen Device NC; Oxygen Saturation ABG 95.1; PO2 ABG 69.7 mmHg (80.0-100.0); Potassium Level - ABG 3.4 mmol/L (3.5-5.0); Total Hemoglobin 12.9 g/dL (12-16)
[2020-08-11 17:05] LABS: Alanine Aminotransferase 28 U/L (0-33); Albumin Level 3.6 g/dL (3.5-5.2); Alkaline Phosphatase 88 IU/L (35-105); Anion Gap 16.2 (5-19); Aspartate Amino Transferase 43 U/L (0-32); Blood Urea Nitrogen 30 mg/dL (8-23); Calcium 8.6 mg/dL (8.5-10.5); Carbon Dioxide 28 mmol/L (22-29); Chloride 102 mmol/L (98-107); Globulin 3.9 g/dL (1.3-4.6); Glucose 110 mg/dL (65-115); Osmolality Calculated 301 mOsm/kg (285-295); Potassium 4.2 mmol/L (3.5-5.1); Sodium 142 mmol/L (136-145); Total Bilirubin 0.7 mg/dL (0.15-1.2); Total Protein 7.5 g/dL (6.6-8.7)
[2020-08-11 17:10] LABS: Troponin(5th) Baseline 27 ng/L (0-10)
[2020-08-11 17:12] LABS: D Dimer 4.76 ug/mIFEU (0-0.59)
--- NOTE | 2020-08-11 17:21 | CTR_ITS ---
PROCEDURE INFORMATION: Exam: CT Angiography Chest With Contrast Exam date and time: 08/11/2020 5:47 PM Age: 85 years old Clinical indication: Cough and shortness of breath; Prior surgery; Surgery type: Mastectomy, aaa; Patient HX: Covid +; Additional info: Elevated d dimer TECHNIQUE: Imaging protocol: Computed tomographic angiography of the chest with contrast. 3D rendering (Not supervised by radiologist): MIP and/or 3D reconstructed images were created by the technologist. Radiation optimization: All CT scans at this facility use at least one of these dose optimization techniques: automated exposure control; mA and/or kV adjustment per patient size (includes targeted exams where dose is matched to clinical indication); or iterative reconstruction. Contrast material: VISI 320; Contrast volume: 66 ml; Contrast route: INTRAVENOUS (IV); COMPARISON: 1. CT chest con [id number] 08/22/2019 12:[address] chest con [id number] 07/14/2016 10:46:41 AM RADIATION DOSE METRICS: Total DLP (mGy-cm): 434.25 FINDINGS: Pulmonary arteries: No filling defects identified in the pulmonary arteries. Some artery branches in the lower lobes are obscured by significant breathing motion artifact. Aorta: Abdominal aortic endograft with the proximal dominant aorta measuring 3.3 cm in diameter. Thyroid: 1.7 cm low-density nodule in the right thyroid lobe. Ultrasound follow-up is recommended. Lungs: Calcified granuloma in the left lower lobe. Stable 1.9 cm right upper lobe nodule. Fibrosis in the lung apices. Patchy airspace opacities in the anterior right upper lobe and peripheral right lower lobe. Severe centrilobular emphysema. Pleural spaces: No pneumothorax. Small right pleural effusion. Heart: Small pericardial effusion. The heart size is normal. Lymph nodes: Unremarkable. No enlarged lymph nodes. Kidneys and ureters: Fluid density cyst in the left kidney, Hounsfield units less than 20. No follow-up imaging is recommended. Bones/joints: Unremarkable. No acute fracture. Soft tissues: Unremarkable. CT/CT angio chest PE protcl [id number] IMPRESSION: 1. No evidence for pulmonary embolus. 2. Airspace opacities in the right upper and lower lobes could represent pneumonia or aspiration. 3. 1.7 cm right thyroid nodule. Ultrasound follow-up is recommended. 4. 1.9 cm right upper lobe nodule has been stable for 4 years and is considered benign. 5. Severe emphysema. 6. Small right pleural effusion. COMMENTS: 1. Consistent with the [employer]'s Incidental Findings Committee white paper (J Am Kayley Radiol 2015): In patients aged 35 years and older with an incidental thyroid nodule equal to or greater than 1.[address], MRI or extrathyroidal US, further evaluation with dedicated thyroid US is recommended for patients with normal life expectancy and without comorbidities. For smaller nodules without suspicious features, no further evaluation or follow up is recommended. 2. Consistent with the [employer]'s Incidental Findings Committee white paper (J Am Kayley Radiol 2018): Any incidental renal lesion less than 1 cm or classified as too small to characterize, or any incidental cystic renal lesion characterized as simple-appearing, is likely benign. No follow-up imaging is recommended for these lesions per consensus recommendations based on imaging criteria. Radiation Dose CTDIVOL = (mGy): DLP = 434.25 (mGy-cm)
[2020-08-11 17:28] LABS: SARS Covid-2 Antigen Positive (Negative)
--- NOTE | 2020-08-11 17:59 | ECG_ITS ---
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
[2020-08-11] MEDS: iodixanol 320 mg/mL 100mL Btl IV (18:16)
--- NOTE | 2020-08-11 18:25 | P.HP_ITS ---
Providers/Chief Complaint Admitting Physician: Sophie Pruitt MD Primary Care Provider: Bonilla Felton MD Chief Complaint: fluid on lungs History of Present Illness Rosaura Shanks is a 85 year old female with PMH breast ca, not currently active, HTN presenting with 2 weeks of worsening shortness of breath. HAd URI symptoms 3 weeks ago, attributed this to travel to [place] where she went with her for an oncology appointment. She was driving for the trip. Had running nose and cough since her return, attributed this to cold weather and did not seek further attention. Went to see PCP today at insistence of her , found to be hypoxic in 02 sat 70%. No prior h/o home 02 use. Denies COPD however albuterol is on her list of medications and CXR shows emphysematous changes. Diagnostics significant for + D dimer, SARS COVID Ag +. In ER she is on 4lpm supplemetal 02. upon presentation was unable to speak in full sentences, appears more comfortable at [facility]kar eof my evaluation. Cough + for several months. No known cardiac history. CTA negative for PE. Review of Systems General: Reports: 10 or more systems reviewed and unremarkable except in HPI and below Const: Denies: fever(s), chills or body aches Eyes: Denies: change in vision, blurry vision or photophobia ENMT: Reports: hoarseness; Denies: throat pain, enlarged tonsils, odynophagia or nasal congestion Card: Denies: chest pain, palpitations, irregular heart rhythm, edema, swelling of feet/ankles, lightheadedness, pre-syncope, dyspnea on exertion or o rthopnea Resp: Denies: dyspnea, productive cough, non-productive cough, wheezing, stridor, pain on inspiration, change in phlegm color, hemoptysis or chest congestion GI: Denies: abdominal pain, nausea, vomiting, hematemesis, coffee ground emesis, dysphagia, heartburn, diarrhea, constipation, GI cramping, change in stool character, hematochezia or melena : Denies: flank pain, difficulty voiding, dysuria, urinary frequency, urinar y urgency, urinary hesitancy or hematuria Musc: Denies: neck pain, back pain, extremity pain, joint swelling, joint warmth or deformity Neuro: Denies: headache(s), numbness in extremities, weakness in extremities, sensory changes, difficulty walking, frequent falls, dizziness, vertigo, beh avioral changes, Slurred speech present or seizure-like activity Psych: Denies: anxiety, depression, suicidal ideation or homicidal ideation Endo: Denies: polyuria, polydipsia, tired all the time, cold intolerance or hot flashes Jose/Lymph: Denies: easy bruising or easy bleeding Medications/Allergies Home Medications Medication Instructions Recorded Confirmed Last Taken Type albuterol sulfate 2 puff INHALATION Q6H 08/11/20 08/11/20 08/11/20 History amlodipine 50 mg PO DAILY 08/11/20 08/11/20 08/10/20 History aspirin [Aspir-81] 81 mg PO DAILY 08/11/20 08/11/20 08/10/20 History atorvastatin 20 mg PO BEDTIME 08/11/20 08/11/20 08/10/20 History lisinopril 40 mg PO DAILY 08/11/20 08/11/20 08/11/20 History metoprolol tartrate 25 mg PO BID 08/11/20 08/11/20 08/11/20 History Allergies Allergy/AdvReac Type Severity Reaction Status Date / Time tramadol Allergy Unknown Verified 08/11/20 16:05 PFSH Acute PFSH: Medical History (Updated 08/11/20 @ 19:13 by Sophie Pruitt MD) Aneurysm, thoracic aortic s/p coiling 2017 Breast cancer Hyperlipidemia Hypertension Social History (Updated 08/11/20 @ 19:13 by Sophie Pruitt MD) Smoking and tobacco status: never smoked Vitals/I&O/Wt Last Vital Signs Temp 98.8 F 08/11/20 16:02 Pulse 54 L 08/11/20 17:14 Resp 16 08/11/20 17:14 BP 143/102 08/11/20 17:14 Pulse Ox 93 08/11/20 17:14 Weight last 48 hrs Weight 47.627 kg Physical Exam Narrative: EXAM NARRATIVE: GEN: Awake, alert and oriented, no acute distress CVS: S1S2 N RS: CTA B/L Abd: Soft, nt/nd , bs+ 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 neuro 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 Data : 08/11/20 16:16 08/11/20 16:16 Attestation for Other Data: I personally reviewed and interpreted the following: Other data: Laboratory Results WBC 7.5 10^3/uL (4.0-10.0) 08/11/20 16:16 RBC 4.53 10^6/uL (4.1-5.3) 08/11/20 16:16 Hgb 13.6 g/dL (11.5-15.3) 08/11/20 16:16 Hct 43.3 % (37.0-47.0) 08/11/20 16:16 MCV 95.6 fL (81-99) 08/11/20 16:16 MCH 30.0 pg (28.0-34.0) 08/11/20 16:16 MCHC 31.4 g/dL (30.0-36.0) 08/11/20 16:16 RDW 12.5 % (12.1-15.1) 08/11/20 16:16 Plt Count 302 10^3/cmm (130-400) 08/11/20 16:16 MPV 9.7 fL (7.4-10.4) 08/11/20 16:16 Neut % (Auto) 82.2 % 08/11/20 16:16 Lymph % (Auto) 7.3 % 08/11/20 16:16 [place] % (Auto) 7.9 % 08/11/20 16:16 Eos % (Auto) 0.0 % 08/11/20 16:16 Baso % (Auto) 0.5 % 08/11/20 16:16 Neut # (Auto) 6.16 10^3/uL (1.8-7.7) 08/11/20 16:16 Lymph # (Auto) 0.6 10^3/uL (0.8-4.8) L 08/11/20 16:16 [place] # (Auto) 0.6 10^3/uL (0.2-0.9) 08/11/20 16:16 Eos # (Auto) 0.0 10^3/uL (0.0-0.8) 08/11/20 16:16 Baso # (Auto) 0.0 10^3/uL (0.0-0.1) 08/11/20 16:16 Nucleated RBC % (auto) 0 % 08/11/20 16:16 Nucleated RBCs # 0.0 /100WBC 08/11/20 16:16 D-Dimer 4.76 ug/mIFEU (0-0.59) H 08/11/20 16:16 Specimen Type Arterial 08/11/20 16:35 Sample Site Radial, left 08/11/20 16:35 ABG pH 7.49 (7.35-7.45) H 08/11/20 16:35 ABG pCO2 38.0 mmHg (35-45) 08/11/20 16:35 ABG pO2 69.7 mmHg (80.0-100.0) L 08/11/20 16:35 ABG HCO3 29.2 mmol/L (22-26) H 08/11/20 16:35 ABG O2 Saturation 95.1 08/11/20 16:35 ABG Base Excess 5.6 mmol/L (-2.0-2.0) H 08/11/20 16:35 Jaleel Test Pos 08/11/20 16:35 A-a O2 Gradient 18.1 mmHg (5-10) H 08/11/20 16:35 Hematocrit 39.4 % (37-47) 08/11/20 16:35 Hgb O2 Saturation 93.2 % (95-100) L 08/11/20 16:35 Carboxyhemoglobin 1.2 %THgb (0.4-20.1) 08/11/20 16:35 Methemoglobin 0.8 % (0.4-1.5) 08/11/20 16:35 Total Hemoglobin 12.9 g/dL (12-16) 08/11/20 16:35 Sodium 144.0 mmol/L (131-143) H 08/11/20 16:35 Potassium 3.4 mmol/L (3.5-5.0) L 08/11/20 16:35 Glucose 112.0 mg/dL (70-115) 08/11/20 16:35 Ionized Calcium 1.1 mmol/L (1.1-1.4) 08/11/20 16:35 O2 Delivery Device Nc 08/11/20 16:35 O2 Liters/Min 4.0 % 08/11/20 16:35 FiO2 36.0 % 08/11/20 16:35 District Fire Management Officer ID Cak 08/11/20 16:35 Sodium 142 mmol/L (136-145) 08/11/20 16:16 Potassium 4.2 mmol/L (3.5-5.1) 08/11/20 16:16 Chloride 102 mmol/L (98-107) 08/11/20 16:16 Carbon Dioxide 28 mmol/L (22-29) 08/11/20 16:16 Anion Gap 16.2 (5-19) 08/11/20 16:16 BUN 30 mg/dL (8-23) H 08/11/20 16:16 Creatinine 0.9 mg/dL (0.5-0.9) 08/11/20 16:16 GFR Calculation Not Reportable 08/11/20 16:16 Glucose 110 mg/dL (65-115) 08/11/20 16:16 Calculated Osmolality 301 mOsm/kg (285-295) H 08/11/20 16:16 Calcium 8.6 mg/dL (8.5-10.5) 08/11/20 16:16 Total Bilirubin 0.7 mg/dL (0.15-1.2) 08/11/20 16:16 AST 43 U/L (0-32) H 08/11/20 16:16 ALT 28 U/L (0-33) 08/11/20 16:16 Alkaline Phosphatase 88 IU/L (35-105) 08/11/20 16:16 Troponin T Baseline 27 ng/L (0-10) H 08/11/20 16:16 Total Protein 7.5 g/dL (6.6-8.7) 08/11/20 16:16 Albumin 3.6 g/dL (3.5-5.2) 08/11/20 16:16 Globulin 3.9 g/dL (1.3-4.6) 08/11/20 16:16 Urine Color Yellow (Yellow) 08/11/20 17:15 Urine Appearance Sl hazy (CLEAR) 08/11/20 17:15 Urine pH 5 (5-7) 08/11/20 17:15 Ur Specific [place] 1.020 (1.005-1.030) 08/11/20 17:15 Urine Protein 1+ (Negative) H 08/11/20 17:15 Urine Glucose (UA) Norm (Normal) 08/11/20 17:15 Urine Ketones Negative (Negative) 08/11/20 17:15 Urine Blood 2+ (Negative) H 08/11/20 17:15 Urine Nitrate Negative (Negative) 08/11/20 17:15 Urine Bilirubin 1+ (Negative) H 08/11/20 17:15 Urine Urobilinogen 4 mg/dL (Negative) H 08/11/20 17:15 Ur Leukocyte Esterase 2+ (Negative) H 08/11/20 17:15 Urine RBC 0-4 /hpf (0-2) H 08/11/20 17:15 Urine WBC >100 /hpf (0-5) H 08/11/20 17:15 Ur Squamous Epith Cells 15-25 /hpf (0-5) H 08/11/20 17:15 Ur Renal Epithelial Cell 0-4 /hpf 08/11/20 17:15 Amorphous Sediment 1+ /hpf 08/11/20 17:15 Urine Bacteria 2+ /hpf (NONE) H 08/11/20 17:15 SARS-CoV-2 Ag (Rapid) Positive (Negative) H 08/11/20 16:34 Impressions Chest CTA 08/11/20 17:21 IMPRESSION: 1. No evidence for pulmonary embolus. 2. Airspace opacities in the right upper and lower lobes could represent pneumonia or aspiration. 3. 1.7 cm right thyroid nodule. Ultrasound follow-up is recommended. 4. 1.9 cm right upper lobe nodule has been stable for 4 years and is considered benign. 5. Severe emphysema. 6. Small right pleural effusion. Radiation Dose CTDIVOL = (mGy): DLP = 434.25 (mGy-cm) 08/11/20 16:35 ABG pH 7.49 H ABG pCO2 38.0 ABG pO2 69.7 L ABG HCO3 29.2 H ABG O2 Saturation 95.1 ABG Base Excess 5.6 H A&P Assessment and plan (1) Pneumonia due to COVID-19 virus: remdisivir x 5 days dexamtheasone 6mg IVP qd fltter valve spiromtery empric CTX 02 requirements appear out of proportion to infiltrates, repeat a COVID PCR for confirmation. 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
[2020-08-11 18:38] LABS: Add Urine Microscopic? YES; Amorphous Sediment Urine 1+ /hpf; Bacteria Urine 2+ /hpf; Bilirubin Urine 1+ (Negative); Blood Urine 2+ (Negative); Glucose Urine UA Norm (Normal); Ketones Urine Negative (Negative); Leukocyte Esterase Urine 2+ (Negative); Nitrate Urine Negative (Negative); Protein Urine 1+ (Negative); RBC Urine 0-4 /hpf (0-2); Squamous Epithelial Cell Urine 15-25 /hpf (0-5); Urine Appearance SL Hazy (CLEAR); Urine Color Yellow (Yellow); Urobilinogen Urine 4 mg/dL (Negative); WBC Urine >100 /hpf (0-5); pH Urine 5 (5-7)
[2020-08-11 18:39] LABS: Renal Epithelial Cells Urine 0-4 /hpf
[2020-08-11] MEDS: remdesivir 200 MG in sodium chloride 0.9% (100 ml) 100 ML 100 MG IV (18:43)
[2020-08-11 19:38] LABS: Troponin 5 2HR 20.87 ng/L (0-10)
[2020-08-11 19:44] LABS: Troponin 5 2HR Delta -6.13 ABS# (0-10)
[2020-08-11] MEDS: cefTRIAXone 1,000 MG in sodium chloride 0.9% (plus) 50 ML 100 MG IV (20:43)
--- NOTE | 2020-08-11 20:45 | PC.NURSE ---
Patient arrived to ICU from ED at 2116. A&O x4. on NC at 4 L. [facility].
[2020-08-11] MEDS: dexamethasone 4 mg/mL INJ 6 MG IVP (21:02)
[2020-08-11] MEDS: atorvastatin 40 mg Tablet 20 MG PO (21:06)
[2020-08-11 22:50] LABS: Troponin 5 6HR 25.15 ng/L (0-10)
[2020-08-11 23:05] LABS: Troponin 5 6HR Delta -1.85 ng/L (0-12)
[2020-08-12] VITALS (150 sets, daily range): BP systolic 86–139; BP diastolic 40–87; PULSE 57–102; RESP 15–32; TEMP 36.6–36.9; O2SAT 87–100
[2020-08-12 05:09] LABS: Basophils % 0.1 %; Hematocrit 37.8 % (37.0-47.0); Hemoglobin 11.9 g/dL (11.5-15.3); Lymphocytes # 0.3 10^3/uL (0.8-4.8); Lymphocytes % 3.8 %; Mean Corpuscular HGB Conc 31.5 g/dL (30.0-36.0); Mean Corpuscular Hemoglobin 30.4 pg (28.0-34.0); Mean Corpuscular Volume 96.4 fL (81-99); Mean Platelet Volume 9.8 fL (7.4-10.4); Monocytes # 0.1 10^3/uL (0.2-0.9); Monocytes % 1.3 %; Neutrophils # 6.42 10^3/uL (1.8-7.7); Neutrophils % 92.8 %; Nucleated Red Blood Cells % 0 %; Platelet Count 282 10^3/cmm (130-400); Red Blood Count 3.92 10^6/uL (4.1-5.3); Red Cell Distribution Width 12.4 % (12.1-15.1); White Blood Count 6.9 10^3/uL (4.0-10.0)
[2020-08-12 05:32] LABS: Alanine Aminotransferase 23 U/L (0-33); Alkaline Phosphatase 80 IU/L (35-105); Anion Gap 11.1 (5-19); Aspartate Amino Transferase 39 U/L (0-32); Blood Urea Nitrogen 25 mg/dL (8-23); Carbon Dioxide 30 mmol/L (22-29); Chloride 103 mmol/L (98-107); Globulin 3.2 g/dL (1.3-4.6); Glucose 130 mg/dL (65-115); Osmolality Calculated 296 mOsm/kg (285-295); Potassium 4.1 mmol/L (3.5-5.1); Sodium 140 mmol/L (136-145); Total Bilirubin 0.5 mg/dL (0.15-1.2); Total Protein 6.2 g/dL (6.6-8.7)
--- NOTE | 2020-08-12 06:00 | USCV_ITS ---
Rosaura Shanks Age: 85 Gender: F : 1935 Exam Date: 08/12/2020 06:38 Ordering Phys: Sophie Pruitt MD Technologist: Francheska Stapleton Exam Location: [facility] [place] Indication: DVT HISTORY: Lower extremity swelling. PROCEDURES: Venous duplex imaging was performed in bilateral lower extremities. The following venous structures were evaluated: common femoral vein, profunda vein, proximal portion of the greater saphenous vein, superficial femoral vein, and the popliteal vein. In addition, the posterior tibial and peroneal trunk were evaluated. FINDINGS: . Normal 2-D Doppler and augmentation and compressibility throughout the lower extremity venous structures. Additional imaging through the proximal calf veins also reveals no thrombus. Limited evaluation of the greater saphenous vein is patent with no thrombus.. CONCLUSIONS No evidence of right lower extremity DVT. No evidence of left lower extremity DVT. Man King MD (Electronically Signed) Final Date: 12 August 2020 10:19 S
--- NOTE | 2020-08-12 06:32 | PC.NURSE ---
No changes: Uneventful shift. Continue care.
[2020-08-12] MEDS: azithromycin 250 mg Tablet 500 MG PO (08:10)
[2020-08-12] MEDS: lisinopril 20 mg Tablet 40 MG PO (08:10)
[2020-08-12] MEDS: aspirin 81 mg EC Tablet PO (08:10)
[2020-08-12] MEDS: amlodipine 10 mg Tablet PO (08:10)
[2020-08-12] MEDS: ascorbic acid 500 mg Tablet PO ×2 (08:10→17:41)
[2020-08-12] MEDS: enoxaparin 40 mg/0.4 mL Syringe SUBCUT (08:10)
[2020-08-12] MEDS: metoprolol tartrate 25 mg Tablet PO (08:11)
[2020-08-12] MEDS: pantoprazole DR 40 mg Tablet PO (08:11)
[2020-08-12] MEDS: zinc gluconate 50 mg Tablet PO (08:11)
--- NOTE | 2020-08-12 10:50 | PC.NURSE ---
Nurse assisted patient with ambulation throughout room. walked approximately 100 feet. PT was on 5 L NC and saturation did not drop below 95% during ambulation. Currently at 100% while resting in chair.
[2020-08-12] MEDS: saline nasal spray 44mL Btl 1 SPRAY NASAL (11:33)
--- NOTE | 2020-08-12 14:26 | PC.NURSE ---
Pt is getting transferred to room 260 - [facility]. Nurse gave report to jena BLANCO. Belonging sent with pt included physial chart, respiratory medications, and clothing. Pt transferred to [facility] without incident.
--- NOTE | 2020-08-12 15:55 | P.PN_ITS ---
Subjective Subjective: Interval history: Patient states feeling improved today. Saturating 94 to 97% on 4 L/min nasal cannula. No visible respiratory distress at this time. Patient's additionally tested positive for Covid today. 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 Data : 08/12/20 04:40 08/12/20 04:40 A&P Assessment and plan (1) Pneumonia due to COVID-19 virus: Continue remdisivir Day 2/5 today dexamtheasone 6mg IVP qd Continue flutter valve and Spiromtery Empiric ceftriaxone and azithromycin CTA chest negative for PE LE duplex negative for DVT Status: Acute (2) Hyperlipidemia: continue statin Status: Acute (3) Hypertension: continue amlodipine, hold lisnopril as SBP ranging at ~90mmhg Status: Acute Attestations Medical Necessity Statement*: COVID 19 pneumonia, currently on iv remdisivir and steroids, closely monitor respiratory status Coding Level of Care Code Acute Testing Shaking Shipping for diana Bowen Diagnoses Pneumonia due to COVID-19 virus U07.1; J12.89 Hyperlipidemia E78.5 Hypertension I10
[2020-08-12] MEDS: remdesivir 100 MG in sodium chloride 0.9% (100 ml) 100 ML IV (17:41)
[2020-08-12 20:16] LABS: Coronavirus Test Green County Detected
[2020-08-12] MEDS: atorvastatin 40 mg Tablet 20 MG PO (20:36)
[2020-08-12] MEDS: cefTRIAXone 1,000 MG in sodium chloride 0.9% (plus) 50 ML 100 MG IV (20:36)
[2020-08-12] MEDS: dexamethasone 4 mg/mL INJ 6 MG IVP (20:36)
[2020-08-13] VITALS (11 sets, daily range): BP systolic 102–126; BP diastolic 60–74; PULSE 51–79; RESP 17–22; TEMP 36.4–37.1; O2SAT 89–96
[2020-08-13] MEDS: azithromycin 250 mg Tablet 500 MG PO (08:51)
[2020-08-13] MEDS: enoxaparin 40 mg/0.4 mL Syringe SUBCUT (08:51)
[2020-08-13] MEDS: acetaminophen 325 mg Tablet 650 MG PO (08:51)
[2020-08-13] MEDS: amlodipine 10 mg Tablet PO (08:52)
[2020-08-13] MEDS: metoprolol tartrate 25 mg Tablet PO ×2 (08:52→18:09)
[2020-08-13] MEDS: ascorbic acid 500 mg Tablet PO ×2 (08:52→18:09)
[2020-08-13] MEDS: pantoprazole DR 40 mg Tablet PO (08:52)
[2020-08-13] MEDS: lisinopril 20 mg Tablet 40 MG PO (08:52)
[2020-08-13] MEDS: zinc gluconate 50 mg Tablet PO (08:52)
[2020-08-13] MEDS: aspirin 81 mg EC Tablet PO (08:52)
[2020-08-13] MEDS: albuterol 8 gm MDI 2 PUFF INHALATION ×2 (15:36→21:28)
[2020-08-13] MEDS: remdesivir 100 MG in sodium chloride 0.9% (100 ml) 100 ML IV (18:09)
--- NOTE | 2020-08-13 18:11 | P.PN_ITS ---
Subjective Subjective: Interval history: Improving oxygen requirement at 3 L/min. Patient feels like breathing is improving. She is coughing, bringing up minimal sputum today. No hemoptysis. 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 Confirmatory PCR testing also returned positive for Covid. Status: Acute (2) Hyperlipidemia: contnue statin Status: Acute (3) Hypertension: continue amlodipine and lisinopril Status: Acute Attestations Medical Necessity Statement*: Currently on treatment for COVID-19 pneumonia, awaiting to complete 5 days of IV remdesivir. 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
[2020-08-13] MEDS: dexamethasone 4 mg/mL INJ 6 MG IVP (22:13)
[2020-08-13] MEDS: atorvastatin 40 mg Tablet 20 MG PO (22:17)
[2020-08-13] MEDS: cefTRIAXone 1,000 MG in sodium chloride 0.9% (plus) 50 ML 100 MG IV (22:19)
[2020-08-14] VITALS (16 sets, daily range): BP systolic 98–138; BP diastolic 59–76; PULSE 53–80; RESP 16–20; TEMP 36.2–36.8; O2SAT 92–97
[2020-08-14] MEDS: albuterol 8 gm MDI 2 PUFF INHALATION ×4 (08:42→20:18)
[2020-08-14] MEDS: enoxaparin 40 mg/0.4 mL Syringe SUBCUT (09:52)
[2020-08-14] MEDS: ascorbic acid 500 mg Tablet PO ×2 (09:53→18:19)
[2020-08-14] MEDS: aspirin 81 mg EC Tablet PO (09:53)
[2020-08-14] MEDS: lisinopril 20 mg Tablet 40 MG PO (09:53)
[2020-08-14] MEDS: zinc gluconate 50 mg Tablet PO (09:53)
[2020-08-14] MEDS: metoprolol tartrate 25 mg Tablet PO ×2 (09:53→18:19)
[2020-08-14] MEDS: amlodipine 10 mg Tablet PO (09:53)
[2020-08-14] MEDS: pantoprazole DR 40 mg Tablet PO (09:53)
[2020-08-14] MEDS: azithromycin 250 mg Tablet 500 MG PO (09:53)
--- NOTE | 2020-08-14 11:36 | PC.SOCIAL ---
IM Follow up provided by phone and pt verbalized understanding. Kennedie was going in room asked that patient copy be given to her.
--- NOTE | 2020-08-14 15:03 | PM.PN ---
Subjective Subjective: Interval history: improving 02 requirement now at 2lpm Medications: Reviewed: Yes Vitals/I&O/Wt Last Vital Signs Temp 98.1 F 08/14/20 11:28 Pulse 58 L 08/14/20 14:00 Resp 18 08/14/20 12:49 BP 98/59 08/14/20 11:28 Pulse Ox 92 08/14/20 12:49 08/14/20 08/14/20 08/14/20 06:59 14:59 22:59 Intake Total 290 / 1650 360 / 360 Output Total 200 / 500 Balance 90 / 1150 360 / 360 Physical Exam Narrative: EXAM NARRATIVE: GEN: Awake, alert and oriented, no acute distress CVS: S1S2 N RS: mild wheezimng left chest Abd: Soft, nt/nd , bs+ DIRECTOR STUDENT UNION: no focal neuro deficits Data : 08/12/20 04:40 08/12/20 04:40 A&P Assessment and plan (1) Pneumonia due to COVID-19 virus: remdisivir x 5 days ; day 4/5 today dexamtheasone 6mg IVP qd to continue fltter valve incentive spiromtery empric CTX and azithromycin CTA chest negative for PE Lower extremity duplex negative for PE, unclear cause of elevated D-dimer at this present time. Confirmatory PCR testing also returned positive for Covid. 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
[2020-08-14] MEDS: remdesivir 100 MG in sodium chloride 0.9% (100 ml) 100 ML IV (18:18)
[2020-08-14] MEDS: atorvastatin 40 mg Tablet 20 MG PO (21:57)
[2020-08-14] MEDS: dexamethasone 4 mg/mL INJ 6 MG IVP (21:58)
[2020-08-14] MEDS: cefTRIAXone 1,000 MG in sodium chloride 0.9% (plus) 50 ML 100 MG IV (21:59)
[2020-08-15] VITALS (11 sets, daily range): BP systolic 106–121; BP diastolic 65–69; PULSE 51–95; RESP 17–22; TEMP 36.6–37.2; O2SAT 87–97
--- NOTE | 2020-08-15 04:00 | XRR_ITS ---
PROCEDURE INFORMATION: Exam: XR Chest Exam date and time: 08/15/2020 8:03 AM Age: 85 years old Clinical indication: Shortness of breath; Additional info: F/up covid pneumonia TECHNIQUE: Imaging protocol: XR of the chest Views: 1 view. COMPARISON: CR XR chest 1V portable [id number] 08/11/2020 4:35 PM FINDINGS: Lungs: There is a stable nodule in the medial right upper lobe projecting on the right sternoclavicular joint. Patchy infiltrates are present in the right base which have improved since previous study. There is scattered bilateral interstitial infiltrate consistent with pneumonitis and fibrosis.. Pleural spaces: Unremarkable. No pleural effusion. No pneumothorax. Heart/Mediastinum: Unremarkable. No cardiomegaly. Bones/joints: Unremarkable Soft tissues: Surgical clips are present in the right axilla. XR/XR chest 1V portable [id number] IMPRESSION: Improving pulmonary infiltrates.
[2020-08-15 05:50] LABS: Alanine Aminotransferase 26 U/L (0-33); Albumin Level 2.6 g/dL (3.5-5.2); Alkaline Phosphatase 82 IU/L (35-105); Aspartate Amino Transferase 28 U/L (0-32); Blood Urea Nitrogen 27 mg/dL (8-23); C Reactive Protein 29.2 mg/L (0.0-4.9); Calcium 7.6 mg/dL (8.5-10.5); Carbon Dioxide 27 mmol/L (22-29); Chloride 104 mmol/L (98-107); Globulin 2.9 g/dL (1.3-4.6); Glucose 164 mg/dL (65-115); Osmolality Calculated 295 mOsm/kg (285-295); Sodium 138 mmol/L (136-145); Total Bilirubin 0.2 mg/dL (0.15-1.2); Total Protein 5.5 g/dL (6.6-8.7)
[2020-08-15 06:05] LABS: Anion Gap 11.6 (5-19); Potassium 4.6 mmol/L (3.5-5.1)
[2020-08-15 06:30] LABS: Basophils % 0.2 %; Hematocrit 36.4 % (37.0-47.0); Hemoglobin 11.3 g/dL (11.5-15.3); Lymphocytes # 0.3 10^3/uL (0.8-4.8); Lymphocytes % 5.9 %; Mean Corpuscular Volume 96.6 fL (81-99); Mean Platelet Volume 10.8 fL (7.4-10.4); Monocytes # 0.1 10^3/uL (0.2-0.9); Neutrophils # 5.01 10^3/uL (1.8-7.7); Neutrophils % 89.2 %; Nucleated Red Blood Cells % 0 %; Platelet Count 362 10^3/cmm (130-400); Red Blood Count 3.77 10^6/uL (4.1-5.3); Red Cell Distribution Width 12.1 % (12.1-15.1); White Blood Count 5.6 10^3/uL (4.0-10.0)
[2020-08-15] MEDS: albuterol 8 gm MDI 2 PUFF INHALATION (07:44)
[2020-08-15] MEDS: ascorbic acid 500 mg Tablet PO (09:40)
[2020-08-15] MEDS: aspirin 81 mg EC Tablet PO (09:40)
[2020-08-15] MEDS: enoxaparin 40 mg/0.4 mL Syringe SUBCUT (09:40)
[2020-08-15] MEDS: zinc gluconate 50 mg Tablet PO (09:40)
[2020-08-15] MEDS: pantoprazole DR 40 mg Tablet PO (09:40)
[2020-08-15] MEDS: metoprolol tartrate 25 mg Tablet PO (09:40)
[2020-08-15] MEDS: amlodipine 10 mg Tablet PO (09:40)
--- NOTE | 2020-08-15 12:02 | PM.DCS ---
Discharge Providers Date of Admission: 08/11/20 17:37 Date of Discharge: August 15, 2020 Attending Provider at Admission: Sophie Pruitt MD Attending Provider at Discharge: Sophie Pruitt MD Primary Care Provider: Bonilla Felton MD Diagnoses at Discharge Discharge Diagnosis (1) Pneumonia due to COVID-19 virus: Status: Acute (2) Hyperlipidemia: Status: Acute (3) Hypertension: Status: Acute Reason for Visit Reason for Visit: fluid on lungs Hospital Course Hospital Course Rosaura Shanks is a 85 year old female with PMH breast ca, not currently active, HTN presenting with 2 weeks of worsening shortness of breath. HAd URI symptoms 3 weeks ago, attributed this to travel to [place] where she went with her for an oncology appointment. She was driving for the trip. Had running nose and cough since her return, attributed this to cold weather and did not seek further attention. Went to see PCP today at insistence of her , found to be hypoxic in 02 sat 70%. No prior h/o home 02 use. Denies COPD however albuterol is on her list of medications and CXR shows emphysematous changes. Diagnostics significant for + D dimer, SARS COVID Ag +. COVID PCR+. CTA negative for PE, B/L infiltrates seen. Initially on 4lpm supplemental 02. Received treatment with iv remdisivir, dexamthasone during course of admission. Improving now. Feels btreathing is easier at time of discharge. Also received empric course of iv ceftraixone and azithromycin. Home 02 evaluation performed prior to discharge. 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 Discharge Data Data Completed and Pending: Completed Studies During Hospitalization Category Date Time Status CT angio chest PE protcl [id number] Stat Cat Scan 08/11/20 17:21 Completed XR chest 1V jean paul ble [id number] AM LABS Exams 08/15/20 04:00 Completed XR chest 1V jean paul ble [id number] Stat Exams 08/11/20 15:59 Completed XR thoracic spine 3V* [id number] Stat Exams 08/11/20 16:00 [place] [id number] Routin e Ultrasound 08/12/20 06:00 Completed Labs from last 24 hours 08/15/20 08/15/20 04:35 04:35 WBC 5.6 RBC 3.77 L Hgb 11.3 L Hct 36.4 L MCV 96.6 MCH 30.0 MCHC 31.0 RDW 12.1 Plt Count 362 MPV 10.8 H Neut % (Auto) 89.2 Lymph % (Auto) 5.9 [place] % (Auto) 2.0 Eos % (Auto) 0.0 Baso % (Auto) 0.2 Neut # (Auto) 5.01 Lymph # (Auto) 0.3 L [place] # (Auto) 0.1 L Eos # (Auto) 0.0 Baso # (Auto) 0.0 Nucleated RBC % (a uto) 0 Nucleated RBCs # 0.0 Sodium 138 Potassium 4.6 Chloride 104 Carbon Dioxide 27 Anion Gap 11.6 BUN 27 H Creatinine 0.6 GFR Calculation Not Reportable Glucose 164 H Calculated Osmolal ity 295 Calcium 7.6 L Total Bilirubin 0.2 AST 28 ALT 26 Alkaline Phosphata se 82 C-Reactive Protein 29.2 H Total Protein 5.5 L Albumin 2.6 L Globulin 2.9 Addt'l Data from Hospital Stay: Laboratory Results WBC 5.6 10^3/uL (4.0- 10.0) 08/15/20 04:35 RBC 3.77 10^6/uL (4.1 -5.3) L 08/15/20 04:35 Hgb 11.3 g/dL (11.5-1 5.3) L 08/15/20 04:35 Hct 36.4 % (37.0-47.0 ) L 08/15/20 04:35 MCV 96.6 fL (81-99) 08/15/20 04:35 MCH 30.0 pg (28.0-34. 0) 08/15/20 04:35 MCHC 31.0 g/dL (30.0-3 6.0) 08/15/20 04:35 RDW 12.1 % (12.1-15.1 ) 08/15/20 04:35 Plt Count 362 10^3/cmm (130 -400) 08/15/20 04:35 MPV 10.8 fL (7.4-10.4 ) H 08/15/20 04:35 Neut % (Auto) 89.2 % 08/15/20 04:35 Lymph % (Auto) 5.9 % 08/15/20 04:35 [place] % (Auto) 2.0 % 08/15/20 04:35 Eos % (Auto) 0.0 % 08/15/20 04:35 Baso % (Auto) 0.2 % 08/15/20 04:35 Neut # (Auto) 5.01 10^3/uL (1.8 -7.7) 08/15/20 04:35 Lymph # (Auto) 0.3 10^3/uL (0.8- 4.8) L 08/15/20 04:35 [place] # (Auto) 0.1 10^3/uL (0.2- 0.9) L 08/15/20 04:35 Eos # (Auto) 0.0 10^3/uL (0.0- 0.8) 08/15/20 04:35 Baso # (Auto) 0.0 10^3/uL (0.0- 0.1) 08/15/20 04:35 Nucleated RBC % (a uto) 0 % 08/15/20 04:35 Nucleated RBCs # 0.0 /100WBC 08/15/20 04:35 D-Dimer 4.76 ug/mIFEU (0- 0.59) H 08/11/20 16:16 Specimen Type Arterial 08/11/20 16:35 Sample Site Radial, left 08/11/20 16:35 ABG pH 7.49 (7.35-7.45) H 08/11/20 16:35 ABG pCO2 38.0 mmHg (35-45) 08/11/20 16:35 ABG pO2 69.7 mmHg (80.0-1 00.0) L 08/11/20 16:35 ABG HCO3 29.2 mmol/L (22-2 6) H 08/11/20 16:35 ABG O2 Saturation 95.1 08/11/20 16:35 ABG Base Excess 5.6 mmol/L (-2.0- 2.0) H 08/11/20 16:35 Jaleel Test Pos 08/11/20 16:35 A-a O2 Gradient 18.1 mmHg (5-10) H 08/11/20 16:35 Hematocrit 39.4 % (37-47) 08/11/20 16:35 Hgb O2 Saturation 93.2 % (95-100) L 08/11/20 16:35 Carboxyhemoglobin 1.2 %THgb (0.4-20 .1) 08/11/20 16:35 Methemoglobin 0.8 % (0.4-1.5) 08/11/20 16:35 Total Hemoglobin 12.9 g/dL (12-16) 08/11/20 16:35 Sodium 144.0 mmol/L (131 -143) H 08/11/20 16:35 Potassium 3.4 mmol/L (3.5-5 .0) L 08/11/20 16:35 Glucose 112.0 mg/dL (70-1 15) 08/11/20 16:35 Ionized Calcium 1.1 mmol/L (1.1-1 .4) 08/11/20 16:35 O2 Delivery Device Nc 08/11/20 16:35 O2 Liters/Min 4.0 % 08/11/20 16:35 FiO2 36.0 % 08/11/20 16:35 Bat Boy/Girl ID Cak 08/11/20 16:35 Sodium 138 mmol/L (136-1 45) 08/15/20 04:35 Potassium 4.6 mmol/L (3.5-5 .1) 08/15/20 04:35 Chloride 104 mmol/L (98-10 7) 08/15/20 04:35 Carbon Dioxide 27 mmol/L (22-29) 08/15/20 04:35 Anion Gap 11.6 (5-19) 08/15/20 04:35 BUN 27 mg/dL (8-23) H 08/15/20 04:35 Creatinine 0.6 mg/dL (0.5-0. 9) 08/15/20 04:35 GFR Calculation Not Reportable 08/15/20 04:35 Glucose 164 mg/dL (65-115 ) H 08/15/20 04:35 Calculated Osmolal ity 295 mOsm/kg (285- 295) 08/15/20 04:35 Calcium 7.6 mg/dL (8.5-10 .5) L 08/15/20 04:35 Total Bilirubin 0.2 mg/dL (0.15-1 .2) 08/15/20 04:35 AST 28 U/L (0-32) 08/15/20 04:35 ALT 26 U/L (0-33) 08/15/20 04:35 Alkaline Phosphata se 82 IU/L (35-105) 08/15/20 04:35 Troponin T Baselin e 27 ng/L (0-10) H 08/11/20 16:16 Troponin T 120 Min abhijit 20.87 ng/L (0-10) H 08/11/20 18:48 Delta Troponin T -6.13 ABS# (0-10) L 08/11/20 18:48 Troponin T Hi Sens 6Hr 25.15 ng/L (0-10) H 08/11/20 22:19 Troponin T Hi Sens 6Hr Delta -1.85 ng/L (0-12) L 08/11/20 22:19 C-Reactive Protein 29.2 mg/L (0.0-4. 9) H 08/15/20 04:35 Total Protein 5.5 g/dL (6.6-8.7 ) L 08/15/20 04:35 Albumin 2.6 g/dL (3.5-5.2 ) L 08/15/20 04:35 Globulin 2.9 g/dL (1.3-4.6 ) 08/15/20 04:35 Urine Color Yellow (Yellow) 08/11/20 17:15 Urine Appearance Sl hazy (CLEAR) 08/11/20 17:15 Urine pH 5 (5-7) 08/11/20 17:15 Ur Specific Gravit y 1.020 (1.005-1.0 30) 08/11/20 17:15 Urine Protein 1+ (Negative) H 08/11/20 17:15 Urine Glucose (UA) Norm (Normal) 08/11/20 17:15 Urine Ketones Negative (Negati ve) 08/11/20 17:15 Urine Blood 2+ (Negative) H 08/11/20 17:15 Urine Nitrate Negative (Negati ve) 08/11/20 17:15 Urine Bilirubin 1+ (Negative) H 08/11/20 17:15 Urine Urobilinogen 4 mg/dL (Negative ) H 08/11/20 17:15 Ur Leukocyte Rosa M ase 2+ (Negative) H 08/11/20 17:15 Urine RBC 0-4 /hpf (0-2) H 08/11/20 17:15 Urine WBC >100 /hpf (0-5) H 08/11/20 17:15 Ur Squamous Epith Cells 15-25 /hpf (0-5) H 08/11/20 17:15 Ur Renal Epithelia l Cell 0-4 /hpf 08/11/20 17:15 Amorphous Sediment 1+ /hpf 08/11/20 17:15 Urine Bacteria 2+ /hpf (NONE) H 08/11/20 17:15 Nasal/Oral COVID-1 9 PCR Detected H 08/11/20 19:54 SARS-CoV-2 Ag (Rap id) Positive (Negati ve) H 08/11/20 16:34 Impressions Thoracic Spine X-Ray 08/11/20 16:00 IMPRESSION: 1. Minimal degenerative change and osteopenia. 2. No fracture, bone destruction or malalignment. 3. Additional minor findings as detailed above. Chest CTA 08/11/20 17:21 IMPRESSION: 1. No evidence for pulmonary embolus. 2. Airspace opacities in the right upper and lower lobes could represent pneumonia or aspiration. 3. 1.7 cm right thyroid nodule. Ultrasound follow-up is recommended. 4. 1.9 cm right upper lobe nodule has been stable for 4 years and is considered benign. 5. Severe emphysema. 6. Small right pleural effusion. COMMENTS: 1. Consistent with the [employer]'s Incidental Findings Committee white paper (J Am Kayley Radiol 2015): In patients aged 35 years and older with an incidental thyroid nodule equal to or greater than 1.[address], MRI or extrathyroidal US, further evaluation with dedicated thyroid US is recommended for patients with normal life expectancy and without comorbidities. For smaller nodules without suspicious features, no further evaluation or follow up is recommended. 2. Consistent with the [employer]'s Incidental Findings Committee white paper (J Am Kayley Radiol 2018): Any incidental renal lesion less than 1 cm or classified as too small to characterize, or any incidental cystic renal lesion characterized as simple-appearing, is likely benign. No follow-up imaging is recommended for these lesions per consensus recommendations based on imaging criteria. Radiation Dose CTDIVOL = (mGy): DLP = 434.25 (mGy-cm) Chest X-Ray 08/15/20 04:00 IMPRESSION: Improving pulmonary infiltrates. Vitals: Last Vital Signs Temp 98.9 F 08/15/20 11:17 Pulse 95 08/15/20 11:17 Resp 18 08/15/20 11:17 BP 117/67 08/15/20 11:17 Pulse Ox 92 08/15/20 11:17 Discharge Plan Discharge Patient Disposition: Home Condition: Stable Prescriptions: New prednisone 5 mg tablets,dose pack See Rx Instructions .ROUTE .COMPLEX Qty: 21 RF: 0 Advair Diskus 250-50 mcg/dose Blister With Device 1 ea inhalation BID.RESPIRATORY 30 Days Qty: 60 RF: 0 pantoprazole 40 mg Tablet,Delayed Release (Dr/Ec) 40 mg PO DAILY 30 Days Qty: 30 RF: 0 Spiriva with HandiHaler 18 mcg Capsule, W/Inhalation Device 18 mcg inhalation DAILY Qty: 30 RF: 0 ascorbic acid (vitamin C) [Vitamin C] 500 mg Tablet 500 mg PO BID Qty: 0 RF: 0 sodium chloride [Saline Mist] 0.65 % Aerosol,[place] 1 spray nasal PRN PRN (Reason: Dryness) Qty: 0 RF: 0 Continued atorvastatin 20 mg tablet 20 mg PO BEDTIME RF: 0 Aspir-81 81 mg Tablet,Delayed Release (Dr/Ec) 81 mg PO DAILY RF: 0 metoprolol tartrate 25 mg tablet 25 mg PO BID RF: 0 Changed albuterol sulfate 90 mcg/actuation HFA aerosol inhaler 2 puff INHALATION Q6H PRN (Reason: prn) Qty: 0 RF: 0 amlodipine 5 mg tablet 10 mg PO DAILY Qty: 0 RF: 0 Discontinued lisinopril 40 mg tablet 40 mg PO DAILY RF: 0 Discharge Orders: Discharge Order (Routine); Ordered 08/15/20 Ordered By: Sophie Pruitt Referrals: Bonilla Felton MD [Primary Care Provider] - 7-10 days Discharge Diet: Usual diet Discharge Activity: Resume usual activity Discharge Attestations Time Spent in Discharge Care*: greater than 30 min Quality Metrics Clinical Quality Measures During this hospital stay, did patient experience: None Coding Level of Care Code Acute 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
--- NOTE | 2020-08-15 13:48 | PC.NURSE ---
notified SS that patient's being discharged and qualifies for 3l nc. Christianne said she has called and oxygen will be delivered.
--- NOTE | 2020-08-15 15:10 | PC.NURSE ---
Per Dr Pruitt, administer Remdesivir now so patient can be discharged home. 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
[2020-08-15] MEDS: remdesivir 100 MG in sodium chloride 0.9% (100 ml) 100 ML IV (15:14)
--- NOTE | 2020-08-15 15:26 | PC.NURSE ---
pt notified that pt will be ready to leave in about an hour. verbalized understanding and given phone number to call when he arrives.
== END 2020-08-15 16:48 | disposition home or self-care (01) | DRG 177 ==
LOC: ER 19:54 → ICU 20:03 → MEDSURG 08-12 13:57
PROVIDERS: Admitting Provider Student in an Organized Health Care Education/Training Program; Emergency Provider Family Medicine; PCP Family Medicine; Visit Provider Student in an Organized Health Care Education/Training Program
DX: U07.1 COVID-19 (principal); J12.82 Pneumonia due to coronavirus disease 2019; Z85.3 Personal history of malignant neoplasm of breast; I10 Essential (primary) hypertension; E78.5 Hyperlipidemia, unspecified; J43.9 Emphysema, unspecified; Z79.82 Long term (current) use of aspirin
CPT/HCPCS: 36415; 36600; 71045; 71275; 72072; 80051; 80053; 81001; 82330; 82805; 84484; 85025; 85378; 86140; 87426; 87635; 93005; 93970; 94640; 96365; 96367; 96372; 99285; J0696; J1100; J1650; J3535; Q0144; Q9967

== ENCOUNTER 2021-03-29 08:41 | Outpatient (CLI) | payer MEDICARE, BC, SELFPAY ==
[2021-03-29 08:49] VITALS: BP 141/84; PULSE 74; RESP 20; TEMP 36.2; O2SAT 93
[2021-03-29] MEDS: denosumab 60 mg SDV SUBCUT (08:57)
[2021-03-29 09:08] VITALS: BP 105/74; PULSE 52; RESP 18; TEMP 36.3; O2SAT 97
== END 2021-03-29 08:42 | disposition home or self-care (01) ==
LOC: ONCMED 08:44
PROVIDERS: PCP Family Medicine; Referring Provider Family Medicine; Visit Provider Family Medicine
DX: M81.0 Age-related osteoporosis without current pathological fracture (principal)
CPT/HCPCS: 96372; J0897

== ENCOUNTER 2021-04-05 15:10 | Outpatient (CLI) | payer MEDICARE, BC, SELFPAY ==
--- NOTE | 2021-04-05 15:19 | CT_ITS ---
WS: [id number] CT ANGIOGRAPHY chest, abdomen and pelvis. HISTORY: AAA, ACUTE ABDOMINAL PAIN, ACUTE THORACIC PAIN TECHNIQUE: CT angiogram is performed during IV injection. Reformation images reviewed. All CT scans a [facility] [employer] use at least one of these dose optimization techniques: automated exposure contro l; mA and/or kV adjustment per patient size (includes targeted exams where dose is matched to clinica l indication); or iterative reconstruction. CONTRAST: Omnipaque 350; 95 mL IV. DLP: 2337.87 mGycm COMPARISON: 08/11/2020 Chronic emphysema. Stable solid nodule measuring 19 x 18 mm RIGHT upper lobe. Stable fibrosis at the lung apices. Improving pneumonia RIGHT middle lobe. Long-term stability of an 8mm nodule which is pro bably in the RIGHT middle lobe. Ectasia and atherosclerosis of the thoracic aorta. Mild aneurysmal di latation measuring up to 3.8 cm. Extensive atherosclerosis in the descending aorta. No dissection is identified. Pulmonary artery is enlarged. No adenopathy. Extensive coronary artery calcifications. Sm all hiatal hernia. Abdominal aorta: Patient is status post endovascular stent grafting of aorta and iliac arteries. Ther e is no evidence for an enlarging aneurysm. No endovascular leak is appreciated. No periaortic hemato mas. Vessels are sclerotic and tortuous. Heterogeneous enhancement on the early phase imaging of the superior mesenteric vein which becomes normally opacified on the delayed imaging. Intensely enhancing 15 mm nodule in the anterior RIGHT lobe of the liver is probably a hemangioma. Gallbladder is normal ly distended. Visualization of the liver, spleen, pancreas and kidneys are negative for acute process . Bilateral renal cysts. Extensive constipation and fecal retention. No adenopathy appreciated. No free fluid in the pelvis. Mild, 20% anterior wedging of T7 is new since 08/11/2020. CT/CT angio chest abdomen pelvis IMPRESSION: 1. No aortic dissection or enlarging aneurysm. 2. Abdominal aortic endovascular graft is stable. No endovascular leak. 3. New since 08/11/2020 is a 20% T7 compression fracture. 4. Stable RIGHT lung nodules. 5. Severe emphysema. 6. Diffuse constipation with overlapping loops of colon. 7. No free fluid. Notified Bonilla Felton MD at 04/05/2021 4:27 PM.
[2021-04-05 15:39] LABS: Blood Urea Nitrogen 13 mg/dL (8-23)
[2021-04-05] MEDS: iohexol 350 mg/mL 100 mL Btl IV (16:26)
== END 2021-04-05 15:11 | disposition home or self-care (01) ==
PROVIDERS: PCP Family Medicine; Visit Provider Family Medicine
DX: M48.54XA Collapsed vertebra, not elsewhere classified, thoracic region, initial encounter for fracture (principal); R91.8 Other nonspecific abnormal finding of lung field; K59.00 Constipation, unspecified; J43.9 Emphysema, unspecified; R10.9 Unspecified abdominal pain; M54.6 Pain in thoracic spine
CPT/HCPCS: 71275; 74174; 82565; 84520; Q9967

== ENCOUNTER 2021-04-07 12:00 | Outpatient (CLI) | payer MEDICARE, BC, SELFPAY | END 2021-04-07 12:01 | disposition home or self-care (01) | LOC: SPT 04-18 15:25 | PROVIDERS: PCP Family Medicine; Visit Provider Family Medicine | DX: Z46.89 Encounter for fitting and adjustment of other specified devices (principal); S22.060A Wedge compression fracture of T7-T8 vertebra, initial encounter for closed fracture; X58.XXXA Exposure to other specified factors, initial encounter | CPT/HCPCS: L0456 ==

== ENCOUNTER 2021-08-01 08:43 | Outpatient (CLI) | payer MEDICARE, BC, SELFPAY ==
--- NOTE | 2021-08-01 08:50 | MM_ITS ---
WS: [id number] LEFT DIGITAL MAMMOGRAPHY WITH CAD CLINICAL INFORMATION: HX OF BREAST CA;RT MAST HISTORY: History of RIGHT mastectomy COMPARISON: August 22, 2019 TECHNIQUE: 4 views of the left breast were obtained. FINDINGS: Scattered fibroglandular densities of the left breast. Stable punctate calcifications. No suspicious focal mass, asymmetry, calcifications, or architectural distortion. No evidence of zoey gnancy. MM/[place] [id number] IMPRESSION: BI-RADS: 2-Benign FOLLOW UP: 1 Year Follow-up Recommend return to annual diagnostic mammography.
== END 2021-08-01 08:44 | disposition home or self-care (01) ==
PROVIDERS: PCP Family Medicine; Visit Provider Family Medicine
DX: Z85.3 Personal history of malignant neoplasm of breast (principal)
CPT/HCPCS: 77065

== ENCOUNTER 2021-09-29 08:35 | Outpatient (CLI) | payer MEDICARE, BC, SELFPAY ==
[2021-09-29 08:43] VITALS: BP 151/86; PULSE 58; RESP 20; TEMP 36.9; O2SAT 91
[2021-09-29] MEDS: denosumab 60 mg SDV SUBCUT (08:55)
[2021-09-29 08:56] VITALS: BP 138/84; PULSE 59; RESP 18; TEMP 36.6; O2SAT 94
== END 2021-09-29 08:36 | disposition home or self-care (01) ==
PROVIDERS: PCP Family Medicine; Referring Provider Family Medicine; Visit Provider Family Medicine
DX: M81.0 Age-related osteoporosis without current pathological fracture (principal)
CPT/HCPCS: 96372; J0897

== ENCOUNTER 2022-01-31 15:44 | Emergency (ER) | payer MEDICARE, BC, SELFPAY ==
--- NOTE | 2022-01-31 15:51 | ECG_ITS ---
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 Measurements Intervals [place] Rate: 59 P: 89 WI: 173 QRS: 75 QRSD: 86 T: 65 QT: 406 QTc: 403 Interpretive Statements SINUS BRADYCARDIA WITH OCCASIONAL SUPRAVENTRICULAR PREMATURE COMPLEXES Compared to ECG 08/11/2020 17:58:07 Junctional rhythm no longer present Electronically Signed On 01-31-2022 17:49:39 CDT by Barbara Castrejon M.D. [id number]
--- NOTE | 2022-01-31 15:51 | XRR_ITS ---
PROCEDURE INFORMATION: Exam: XR Chest Exam date and time: 01/31/2022 4:18 PM Age: 86 years old Clinical indication: Cough and dyspnea; Additional info: Dyspnea/cough TECHNIQUE: Imaging protocol: Radiologic exam of the chest. Views: 1 view. COMPARISON: CR XR chest 2V* [id number] 11/09/2020 12:43 PM FINDINGS: Lungs: Lungs are hyperinflated in keeping with COPD. There is no pulmonary vascular congestion. No focal infiltrate is identified. Pleural spaces: Unremarkable. No pleural effusion. No pneumothorax. Heart/Mediastinum: Heart is within normal limits of size. Vasculature: Aortic stent graft is seen in the abdominal aorta. Bones/joints: Unremarkable. Soft tissues: Findings of right mastectomy again identified. XR/XR chest 1V portable [id number] IMPRESSION: No acute infiltrate.
[2022-01-31 15:56] VITALS: BP 170/100; PULSE 76; RESP 19; TEMP 36.4; O2SAT 98; BMI 18.8
--- NOTE | 2022-01-31 16:13 | W.ED.DIZZY ---
Documented by User: Freddy Orourke DO 02/01/22 08:28 HPI - Dizziness General: Chief Complaint: Dizziness Stated Complaint: DIZZY Time Seen by Provider: 01/31/22 15:49 Source: patient Mode of arrival: EMS Limitations: no limitations History of Present Illness: HPI Narrative: 86-year-old female presents emergency room via EMS complaining of dizziness. Patient also has elevated blood pressure on arrival. Patient reports feeling vertiginous-like symptoms whenever she sits or stands. She not having difficulty speech or swallowing. She had very difficult time with balance today. She denies any chest pain or shortness of breath. No dysuria urgency or frequency. She not had any vomiting or diarrhea. She has no known history of previous stroke or heart attack she does have history of high blood pressure and hyperlipidemia. She has severe COPD and is chronically on oxygen at night only. She still smokes a pack a day. Even after arriving here she notes that the change in body position does worsen her symptoms. However at the bedside at her set up check her blood pressure at did not decrease and she had no particular significant symptoms. MD elicited complaint: dizziness and lightheadedness Onset (ago): hour(s) Timing: sudden onset Severity: moderate Description: room spinning Context: change in body position Exacerbating factors: nothing Relieving factors: nothing Associated symptoms: Denies change in hearing, chest pain, chills, cough, diaphoresis, ear discharge, ear pressure, fevers/chills, headache(s), malaise, nausea, nasal congestion, palpitations, rash, short of breath, syncope, tinnitus, vomiting or weakness Associated neuro symptoms: Deny confusion, difficulty speaking, dysphagia, diplopia, extremity weakness, facial numbness, facial weakness, gait changes, numbness in extremities or visual changes Review of Systems Const: Denies: fever(s), chills, fatigue, malaise or diaphoresis ENMT: Denies: throat pain, ear discharge, change in hearing, tinnitus or nasal congestion Card: Denies: chest pain, palpitations or syncope Resp: Denies: dyspnea, productive cough or non-productive cough GI: Denies: abdominal pain, nausea, vomiting or dysphagia : Denies: flank pain, difficulty voiding, dysuria, urinary frequency or urinary urgency Skin/Breast: Denies: rash or pruritus Neuro: Denies: headache(s), numbness in extremities or confusion PFSH ED PFSH: Medical History Aneurysm, thoracic aortic s/p coiling 2017 Breast cancer COPD (chronic obstructive pulmonary disease) Hyperlipidemia Hypertension Social History Smoking and tobacco status: never smoked Physical Exam Const: GENERAL APPEARANCE: cooperative and comfortable ORIENTATION/CONSCIOUSNESS: Yes awake, Yes oriented to person, Yes oriented to place and Yes oriented to time HENMT: COMMON NORMALS: normocephalic, atraumatic and hearing grossly normal bilaterally HEAD & SCALP: normocephalic and atraumatic Neck/C-Spine: COMMON NORMALS: full ROM, no lymphadenopathy, supple and no JVD Lymph: LYMPHATIC: no lymphadenopathy noted and no lymphedema noted Resp: COMMON NORMALS: normal respiratory effort, No retractions, No use of accessory muscles and clear to auscultation bilaterally AUSCULTATION: clear to auscultation bilaterally Cardio: COMMON NORMALS: no JVD, regular rate, regular rhythm and No murmurs present (Cardio) RATE: regular rate RHYTHM: regular rhythm GI: COMMON NORMALS: Soft to palpation and No hepatosplenomegaly present AUSCULTATION: Yes normoactive bowel sounds PALPATION: Yes Soft to palpation, No Tenderness to palpation present (GI), No Guarding due to palpation present (GI) and Yes No hepatosplenomegaly present Extremity: COMMON NORMALS: normal to inspection, capillary refill normal, no clubbing, cyanosis or edema, no calf tenderness and no pedal edema Neuro: SENSORIUM/ORIENTATION: Yes oriented to person, Yes oriented to place and Yes oriented to time Skin: COMMON NORMALS: no rashes or lesions noted GENERAL SKIN EXAM: no rashes or lesions noted Course Vital Signs: Vital signs: Vital Signs Temperature 97.6 F 01/31/22 15:56 Pulse Rate 79 01/31/22 19:30 Respiratory Rate 22 H 01/31/22 19:30 Blood Pressure 139/79 01/31/22 19:30 Pulse Oximetry 97 01/31/22 19:30 Oxygen Delivery Me thod 01/31/22 18:48 Oxygen Flow Rate 2 01/31/22 15:56 MDM - Dizziness Medical Decision Making Care signed out to Dr. Willis at change shift see his note final diagnosis and disposition. Patient presents here with some lightheadedness patient was able to ambulate the halls here without any abnormalities. She does feel improved here as well head CT blood work is all normal she is stable for discharge she is to follow-up with PCP and return if worsening. Lab Data : 01/31/22 17:06 01/31/22 17:06 Radiology Impressions Chest X-Ray 01/31/22 15:51 IMPRESSION: No acute infiltrate. Head CT 01/31/22 16:24 IMPRESSION: No acute intracranial finding. Laboratory Results WBC 5.9 10^3/uL (4.0-10.0) 01/31/22 17:06 RBC 4.13 10^6/uL (4.1-5.3) 01/31/22 17:06 Hgb 12.7 g/dL (11.5-15.3) 01/31/22 17:06 Hct 37.6 % (37.0-47.0) 01/31/22 17:06 MCV 91.0 fl (81-99) 01/31/22 17:06 MCH 30.8 pg (28.0-34.0) 01/31/22 17:06 MCHC 33.8 g/dL (30.0-36.0) 01/31/22 17:06 RDW 11.9 % (12.1-15.1) L 01/31/22 17:06 Plt Count 178 10^3/cmm (130-400) 01/31/22 17:06 MPV 9.9 fL (7.4-10.4) 01/31/22 17:06 Neut % (Auto) 67.6 % 01/31/22 17:06 Lymph % (Auto) 20.1 % 01/31/22 17:06 [place] % (Auto) 7.3 % 01/31/22 17:06 Eos % (Auto) 3.1 % 01/31/22 17:06 Baso % (Auto) 1.7 % 01/31/22 17:06 Neut # (Auto) 3.96 10^3/uL (1.8-7.7) 01/31/22 17:06 Lymph # (Auto) 1.2 10^3/uL (0.8-4.8) 01/31/22 17:06 [place]ami # (Auto) 0.4 10^3/uL (0.2-0.9) 01/31/22 17:06 Eos # (Auto) 0.2 10^3/uL (0.0-0.8) 01/31/22 17:06 Baso # (Auto) 0.1 10^3/uL (0.0-0.1) 01/31/22 17:06 Nucleated RBC % (auto) 0 % 01/31/22 17:06 Nucleated RBCs # 0.0 /100WBC 01/31/22 17:06 Sodium 141 mmol/L (136-145) 01/31/22 17:06 Potassium 3.9 mmol/L (3.5-5.1) 01/31/22 17:06 Chloride 106 mmol/L (98-107) 01/31/22 17:06 Carbon Dioxide 25 mmol/L (22-29) 01/31/22 17:06 Anion Gap 13.9 (5-19) 01/31/22 17:06 BUN 13 mg/dL (8-23) 01/31/22 17:06 Creatinine 0.5 mg/dL (0.5-0.9) 01/31/22 17:06 GFR Calculation Not Reportable 01/31/22 17:06 Glucose 97 mg/dL (65-115) 01/31/22 17:06 Calculated Osmolality 292 mOsm/kg (285-295) 01/31/22 17:06 Calcium 8.6 mg/dL (8.5-10.5) 01/31/22 17:06 Total Bilirubin 0.3 mg/dL (0.15-1.2) 01/31/22 17:06 AST 17 U/L (0-32) 01/31/22 17:06 ALT 15 U/L (0-33) 01/31/22 17:06 Alkaline Phosphatase 96 U/L (35-105) 01/31/22 17:06 Total Protein 6.4 g/dL (6.6-8.7) L 01/31/22 17:06 Albumin 4.0 g/dL (3.5-5.2) 01/31/22 17:06 Globulin 2.4 g/dL (1.3-4.6) 01/31/22 17:06 Discharge Plan Discharge Patient Disposition: Home Clinical Impression: Dizziness Condition: Stable Prescriptions: No Action atorvastatin 20 mg tablet 20 mg PO BEDTIME aspirin 81 mg Tablet,Delayed Release (Dr/Ec) 81 mg PO DAILY metoprolol tartrate 25 mg tablet 25 mg PO BID amlodipine 5 mg tablet 10 mg PO DAILY Qty: 0 0RF albuterol sulfate 90 mcg/actuation HFA aerosol inhaler 2 puff INHALATION Q6H PRN (Reason: prn) Qty: 0 0RF lisinopril 40 mg tablet 40 mg PO DAILY Breztri Aerosphere 160-9-4.8 mcg/actuation HFA aerosol inhaler 1 inh INHALATION BID Discharge Orders: Discharge ED (Routine); Ordered 01/31/22 Ordered By: Dawna Willis Referrals: Bonilla Felton MD [Primary Care Provider] - 1-3 days Discharge Diet: Advance as tolerated Discharge Activity: Resume usual activity Patient Instructions: Lightheadedness (ED) Coding Level of Care Code ED Performance Improvement Specialist for Chg Fwd Exam Comprehensive Documented by User: Dawna Willis MD 01/31/22 19:30 HPI - Dizziness General: Chief Complaint: Dizziness Stated Complaint: DIZZY Time Seen by Provider: 01/31/22 15:49 PFSH ED PFSH: Medical History Aneurysm, thoracic aortic s/p coiling 2017 Breast cancer COPD (chronic obstructive pulmonary disease) Hyperlipidemia Hypertension Social History Smoking and tobacco status: never smoked Course Vital Signs: Vital signs: Vital Signs Temperature 97.6 F 01/31/22 15:56 Pulse Rate 79 01/31/22 19:30 Respiratory Rate 22 H 01/31/22 19:30 Blood Pressure 139/79 01/31/22 19:30 Pulse Oximetry 97 01/31/22 19:30 Oxygen Delivery Me thod 01/31/22 18:48 Oxygen Flow Rate 2 01/31/22 15:56 MDM - Dizziness Medical Decision Making Patient presents here with some lightheadedness patient was able to ambulate the halls here without any abnormalities. She does feel improved here as well head CT blood work is all normal she is stable for discharge she is to follow-up with PCP and return if worsening. Lab Data : 01/31/22 17:06 01/31/22 17:06 Radiology Impressions Chest X-Ray 01/31/22 15:51 IMPRESSION: No acute infiltrate. Head CT 01/31/22 16:24
--- NOTE | 2022-01-31 16:24 | CTR_ITS ---
PROCEDURE INFORMATION: Exam: CT Head Without Contrast Exam date and time: 01/31/2022 5:56 PM Age: 86 years old Clinical indication: Dizziness; Additional info: New onset vertigo TECHNIQUE: Imaging protocol: Computed tomography of the head without contrast. Radiation optimization: All CT scans at this facility use at least one of these dose optimization techniques: automated exposure control; mA and/or kV adjustment per patient size (includes targeted exams where dose is matched to clinical indication); or iterative reconstruction. COMPARISON: MR head wo/w con [id number] 03/18/2020 10:02 AM RADIATION DOSE METRICS: Total DLP (mGy-cm): 1000.18 FINDINGS: Brain: There is moderate cortical atrophy. Low-density changes in the white matter are consistent with nonspecific small vessel chronic ischemic change. There is no intracranial mass, hemorrhage or edema. Cerebral ventricles: No ventriculomegaly. Paranasal sinuses: Visualized sinuses are unremarkable. No fluid levels. Mastoid air cells: Visualized mastoid air cells are well aerated. Bones/joints: Unremarkable. No acute fracture. Soft tissues: Unremarkable. CT/CT head wo con* [id number] IMPRESSION: No acute intracranial finding.
[2022-01-31 17:17] LABS: Basophils # 0.1 10^3/uL (0.0-0.1); Basophils % 1.7 %; Eosinophils # 0.2 10^3/uL (0.0-0.8); Eosinophils % 3.1 %; Hematocrit 37.6 % (37.0-47.0); Hemoglobin 12.7 g/dL (11.5-15.3); Lymphocytes # 1.2 10^3/uL (0.8-4.8); Lymphocytes % 20.1 %; Mean Corpuscular HGB Conc 33.8 g/dL (30.0-36.0); Mean Corpuscular Hemoglobin 30.8 pg (28.0-34.0); Mean Platelet Volume 9.9 fL (7.4-10.4); Monocytes # 0.4 10^3/uL (0.2-0.9); Monocytes % 7.3 %; Neutrophils # 3.96 10^3/uL (1.8-7.7); Neutrophils % 67.6 %; Nucleated Red Blood Cells % 0 %; Platelet Count 178 10^3/cmm (130-400); Red Blood Count 4.13 10^6/uL (4.1-5.3); Red Cell Distribution Width 11.9 % (12.1-15.1); White Blood Count 5.9 10^3/uL (4.0-10.0)
[2022-01-31 17:42] LABS: Alanine Aminotransferase 15 U/L (0-33); Alkaline Phosphatase 96 U/L (35-105); Anion Gap 13.9 (5-19); Aspartate Amino Transferase 17 U/L (0-32); Blood Urea Nitrogen 13 mg/dL (8-23); Calcium 8.6 mg/dL (8.5-10.5); Carbon Dioxide 25 mmol/L (22-29); Chloride 106 mmol/L (98-107); Globulin 2.4 g/dL (1.3-4.6); Glucose 97 mg/dL (65-115); Osmolality Calculated 292 mOsm/kg (285-295); Potassium 3.9 mmol/L (3.5-5.1); Sodium 141 mmol/L (136-145); Total Bilirubin 0.3 mg/dL (0.15-1.2); Total Protein 6.4 g/dL (6.6-8.7)
[2022-01-31 18:46] VITALS: BP 128/74; BP 129/78; BP 133/83; PULSE 63; PULSE 66; PULSE 83
[2022-01-31 18:48] VITALS: BP 133/83; PULSE 83; RESP 17; O2SAT 97
[2022-01-31] MEDS: LORazepam 0.5 mg Tablet PO (19:03)
[2022-01-31 19:30] VITALS: BP 139/79; PULSE 79; RESP 22; O2SAT 97
== END 2022-01-31 19:30 | disposition home or self-care (01) ==
PROVIDERS: Family Medicine; Emergency Provider Emergency Medicine; PCP Family Medicine
DX: R42 Dizziness and giddiness (principal); Z79.82 Long term (current) use of aspirin; J44.9 Chronic obstructive pulmonary disease, unspecified; Z85.3 Personal history of malignant neoplasm of breast; E78.5 Hyperlipidemia, unspecified; I10 Essential (primary) hypertension
CPT/HCPCS: 36415; 70450; 71045; 80053; 85025; 93005; 99285

== ENCOUNTER 2022-04-03 08:35 | Outpatient (CLI) | payer MEDICARE, BC, SELFPAY ==
[2022-04-03 08:45] VITALS: BP 130/72; PULSE 62; RESP 18; TEMP 36.6; O2SAT 97
[2022-04-03] MEDS: denosumab 60 mg SDV SUBCUT (08:53)
[2022-04-03 08:59] VITALS: BP 122/75; PULSE 57; RESP 18; TEMP 36.7; O2SAT 97
== END 2022-04-03 08:36 | disposition home or self-care (01) ==
PROVIDERS: PCP Family Medicine; Visit Provider Family Medicine
DX: M81.0 Age-related osteoporosis without current pathological fracture (principal)
CPT/HCPCS: 96372; J0897

== ENCOUNTER 2022-07-31 12:24 | Outpatient (CLI) | payer MEDICARE, BC, SELFPAY ==
--- NOTE | 2022-07-31 12:39 | XR_ITS ---
WS: [id number] DEXA (DUAL ENERGY X-RAY ABSORPTIOMETRY) Bone mineral density was performed using a Servoy machine. HISTORY: OSTEOPOROSIS COMPARISON: 12/05/2019 Lumbar spine BMD (L1-L4): 1.091 g/cm2 T score: -0.7 Z score: 1.9 Total hip BMD: Left: 0.609 g/cm2. T score: -3.2 Z score: -0.4 Right: 0.682 g/cm2. T score: -2.6 Z score: 0.2 10 year probability of a major osteoporotic fracture is 22.6%. Compared to the prior study from 12/05/2019. Lumbar spine bone mineral density has decreased by 8.1%. Bilateral hips bone mineral density has decreased by 0.3%. XR/XR DEXA axial skeleton* [id number] IMPRESSION: OSTEOPOROSIS based upon the WHO classification for females. Significant decrease in lumbar spine bone mineral density since the prior study .
== END 2022-07-31 12:25 | disposition home or self-care (01) ==
LOC: RAD 12:29
PROVIDERS: PCP Family Medicine; Visit Provider Family Medicine
DX: M81.0 Age-related osteoporosis without current pathological fracture (principal)
CPT/HCPCS: 77080

== ENCOUNTER 2022-08-07 10:08 | Outpatient (CLI) | payer MEDICARE, BC, SELFPAY ==
--- NOTE | 2022-08-07 10:18 | MM_ITS ---
WS: [id number] VIEWS: MLO, CC, and ML views of the left breast only. 3D digital tomosynthesis is also included in t his exam. Comparison made with prior exam of 04/12/2015, 07/19/2016, 07/19/2017, 07/29/2018, 08/22/2019, 08/01/2021.. Findings: There was no sign of mass, architectural distortion or suspicious calcification in the left breast. The left breast is homogeneously very dense MM/[place] [id number] Impression: BI-RADS: 2-Benign FOLLOW-UP: 1 Year Follow-up This mammogram was also analyzed by the Computer Aided Detection System R2 Imag e Admin Asst.
== END 2022-08-07 10:09 | disposition home or self-care (01) ==
PROVIDERS: PCP Family Medicine; Visit Provider Family Medicine
DX: Z85.3 Personal history of malignant neoplasm of breast (principal); Z90.11 Acquired absence of right breast and nipple
CPT/HCPCS: 77061; G0279

== ENCOUNTER → 2022-11-06 13:24 | Outpatient (BNVA) | payer MEDICARE, BC, SELFPAY | PROVIDERS: PCP Family Medicine; Visit Provider Dermatology | DX: C44.41 Basal cell carcinoma of skin of scalp and neck (principal); C44.319 Basal cell carcinoma of skin of other parts of face; L57.0 Actinic keratosis; L81.4 Other melanin hyperpigmentation; L82.1 Other seborrheic keratosis; L57.8 Other skin changes due to chronic exposure to nonionizing radiation | CPT/HCPCS: 11102; 11103; 17000; 17003; 17280; 99213 ==

== ENCOUNTER 2022-11-23 13:54 | Oncology outpatient (recurring) (ONCR) | payer MEDICARE, BC, SELFPAY ==
[2022-11-23 14:15] VITALS: BP 133/83; PULSE 68; RESP 22; TEMP 37.2; O2SAT 97
[2022-11-23] MEDS: denosumab 60 mg SDV SUBCUT (14:19)
== END 2022-12-15 23:59 | disposition home or self-care (01) ==
PROVIDERS: PCP Family Medicine; Visit Provider Family Medicine
DX: M81.0 Age-related osteoporosis without current pathological fracture (principal)
CPT/HCPCS: 96372; J0897

== ENCOUNTER → 2023-02-06 15:25 | Outpatient (BNVA) | payer MEDICARE, BC, SELFPAY | PROVIDERS: PCP Family Medicine; Visit Provider Dermatology | DX: C44.219 Basal cell carcinoma of skin of left ear and external auricular canal (principal); C44.41 Basal cell carcinoma of skin of scalp and neck; C44.319 Basal cell carcinoma of skin of other parts of face; R59.0 Localized enlarged lymph nodes; R42 Dizziness and giddiness | CPT/HCPCS: 99214 ==

== ENCOUNTER 2023-03-13 09:00 | Outpatient (CLI) | payer MEDICARE, BC, SELFPAY ==
--- NOTE | 2023-03-13 | MR_ITS ---
WS: [id number] MRI NECK WITH CONTRAST TECHNIQUE: Noncontrast axial T1, axial T2 FSE fat sat, coronal T2 fat sat, coronal T1, coronal T1 fat sat, sagittal T2 fat sat, plus contrast enhanced coronal, sagittal, and axial T1 fat sat images obta ined. CLINICAL INFORMATION: LT EAR BASIL CELL COMPARISON: None. FINDINGS: Parotid glands are normal. Normal submandibular glands. Normal posterior nasopharynx. Normal paraphar yngeal fat. No evidence of supraglottic or glottic mass. Paranasal sinuses are well aerated. Mastoid air cells are well aerated. Normal posterior fossa. Normal vascular flow voids at the skull base. Mod erate parenchymal volume loss partially visualized. Small vessel changes. Mastoid air cells are well aerated. No evidence of enhancing mass or lesion in the LEFT facial soft tissues. No cervical lymphadenopathy. Multinodular thyroid largest nodule in the RIGHT measuring 1.9 x 1.4 cm. Partially visualized spiculated cavitary lesion in the LEFT upper lobe measuring 2.5 cm recommend fur ther evaluation with chest CT. Partially visualized prominent tortuous vessels or lymphadenopathy at the edge of the [id number] L EFT supraclavicular region not well visualized. Recommend further evaluation with neck and chest CT. Incidental cyst involving the LEFT parahippocampal gyrus unchanged since the prior MRI 03/18/2020. IMPRESSION: 1. Partially visualized spiculated cavitary lesion in the LEFT upper lobe measuring 2.5 cm recommend further evaluation with chest CT. 2. Partially visualized prominent tortuous vessels vs lymphadenopathy at the edge of the field-of-vi ew LEFT supraclavicular region not well visualized. Recommend further evaluation with neck and chest CT. 3. Multinodular thyroid with the largest nodule in the RIGHT measuring 1.9 x 1.4 cm. 4. Normal salivary glands. 5. No evidence of supraglottic or glottic mass. 6. Otherwise no visualized cervical lymphadenopathy.
[2023-03-13] MEDS: gadobenate dimeglumine 20 mL vial IV (13:10)
== END 2023-03-13 10:00 | disposition home or self-care (01) ==
LOC: RAD 06-19 10:14
PROVIDERS: PCP Family Medicine; Visit Provider Dermatology
DX: C44.219 Basal cell carcinoma of skin of left ear and external auricular canal (principal); C44.41 Basal cell carcinoma of skin of scalp and neck; C44.319 Basal cell carcinoma of skin of other parts of face; R91.8 Other nonspecific abnormal finding of lung field; E04.2 Nontoxic multinodular goiter; R93.89 Abnormal findings on diagnostic imaging of other specified body structures
CPT/HCPCS: 70543; A9577

== ENCOUNTER 2023-03-29 14:21 | Outpatient (CLI) | payer MEDICARE, BC, SELFPAY ==
--- NOTE | 2023-03-29 14:28 | CT_ITS ---
WS: [id number] CT NECK TECHNIQUE: Contrast-enhanced CT of the neck with coronal and sagittal reformatted images. CLINICAL INFORMATION: LOCALIZED ENLARGED LYMPH NODES COMPARISON: MRI 03/13/2023 DLP: 331.[address] scans at [facility] use at least one of these dose optimization techniques: automated e xposure control; mA and/or kV adjustment per patient size (includes targeted exams where dose is matc hed to clinical indication); or iterative reconstruction. FINDINGS: RIGHT upper lobe soft tissue mass measures approximately 1.8 x 1.8 cm stable compared to CTA and PET/CT 2014. Spiculated lesion in the LEFT upper lung apex similar to 2020 not significantly ch anged Multinodular thyroid. Mastoid air cells and paranasal sinuses are well aerated. Normal parotid and ba bmandibular glands. No evidence of supraglottic or glottic mass. Normal subglottic airway. No cervica l lymphadenopathy. Tortuous vessels in the LEFT supraclavicular region in the area of concern on the prior MRI neck. No lymphadenopathy in this region. . IMPRESSION: 1. Incidental tortuous vessels in the area of concern on the prior MRI neck. No lymphadenopathy in t his region. 2. Multinodular thyroid. 3. No cervical lymphadenopathy. 4. Soft tissue mass in the RIGHT upper lobe measuring 1.8 x 1.8 cm is stable since the CTA and PET/CT 2014. Appearance remains suspicious for neoplasm and recommend continued surveillance an d/or pulmonary consultation. This demonstrated suspicious FDG activity on the prior PET/CT 2014. 5. Spiculated lesion in the LEFT upper lobe lung apex is stable since 04/05/2021. See chest CT repor t for further evaluation.
--- NOTE | 2023-03-29 14:28 | CT_ITS ---
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 Coronal and sagittal reformats are submitted. [facility] use at least one of these dose optimization techniques: automated exposure control; mA and/or kV adjustment per patient size (includes targeted exams where dose is mat ched to clinical indication); or iterative reconstruction. CONTRAST: Omnipaque 350; 100 mL IV. DLP: 331.45 mGy.cm COMPARISON: 04/05/2021, PET/CT 07/04/2014 Lungs and central airway: Severe emphysema. Well-circumscribed lobulated mass RIGHT lung apex measure s 19 x 19 x 19 mm. This mass has been present on prior examinations. PET/CT from 2014 indicated low-g rade neoplasm. There is additional fibrosis and scarring at the LEFT apex. Slightly greater nodularit y of this area of scarring since the prior studies. This scar measures 16 x 7 x 8 mm. There is additi onal mild groundglass attenuation in the LEFT upper lobe which is increased also. This is contiguous with the LEFT apical pleural thickening and nodularity. Additional subsolid opacification medial RIGH T upper lobe. There are a few small pleural tags which are often benign. There is a spiculated mass m easuring 11 x 12 x 10 mm towards the lingula. This was probably present in 2020 but small caliber. Th ere is an additional nodule measuring 4 x 6 x 7 mm in the RIGHT middle lobe. This nodule is new. Irre gular opacification measuring 9 x 7 x 8 mm at the RIGHT lung base. No effusions. There is small pleural tags bilaterally. Heart and pericardium: Mild cardiomegaly Mediastinum and annabella: No mediastinum or hilar adenopathy. Vessels: Markedly ectatic and mildly dilated thoracic aorta. Mild aneurysmal dilatation of the ascend ing aorta to 3.7 cm. Thoracic aorta is tortuous. Proximal endovascular abdominal aortic stent graft i s identified in the upper abdominal aorta. Mild pulmonary artery enlargement. Chest wall and lower neck: No soft tissue masses. Upper abdomen: LEFT renal cyst. No adrenal mass identified. Osseous structures: Increase in thoracic kyphosis. Reidentified is a T7 compression fracture which wa s also present on 04/05/2021. IMPRESSION: 1. Marked chronic emphysema. 2. Long-term stability of a PET/CT positive nodule RIGHT upper lobe measuring 19 x 19 x 19 mm. No inc rease in size since 2015. Thought to be low-grade neoplasm on the prior PET/CT. 3. Increasing nodularity and fibrosis at the LEFT apex. There is adjacent groundglass attenuation. Ea rly low-grade neoplastic changes should be considered. 4. Spiculated nodule at the lingula measuring 11 x 12 x 10 mm. Suspicious for neoplasm. 5. New 7 mm nodule in the RIGHT middle lobe. 6. Irregular opacification at the RIGHT lung base. Area of pneumonitis, scar or neoplastic. 7. No enlarging lymph nodes within the mediastinum or hilum. 8. Mild cardiomegaly and atherosclerotic aorta.
[2023-03-29] MEDS: iohexol 350 mg/mL 500 mL Btl (per mL) IV (15:03)
[2023-03-29 15:07] LABS: Blood Urea Nitrogen 14 mg/dL (8-23)
== END 2023-03-29 14:22 | disposition home or self-care (01) ==
PROVIDERS: PCP Family Medicine; Visit Provider Dermatology
DX: R91.1 Solitary pulmonary nodule (principal); C44.91 Basal cell carcinoma of skin, unspecified; R59.0 Localized enlarged lymph nodes; R91.8 Other nonspecific abnormal finding of lung field
CPT/HCPCS: 70491; 71260; 82565; 84520; Q9967

== ENCOUNTER → 2023-04-03 14:50 | Outpatient (BNVA) | payer MEDICARE, BC, SELFPAY | PROVIDERS: PCP Family Medicine; Visit Provider Dermatology | DX: D48.5 Neoplasm of uncertain behavior of skin (principal); R42 Dizziness and giddiness; R51.9 Headache, unspecified; Z85.828 Personal history of other malignant neoplasm of skin | CPT/HCPCS: 99214 ==

== ENCOUNTER 2025-03-19 09:20 | Emergency (ER) | payer MEDICARE, BC, SELFPAY ==
[2025-03-19] VITALS (7 sets, daily range): BP systolic 152–175; BP diastolic 88–91; PULSE 53–76; RESP 17; TEMP 36.9; O2SAT 95–99; BMI 14.6
--- OUTSIDE RECORDS SUMMARY | 2025-03-19 09:31 | XMS_ITS | Encounter Summary ---
Author Organization [facility] Address [address] [place] [address] Care Team Providers Care Gas Torch Brazier Name Role Phone Bonilla Felton MD Primary Care Provider Reason for Referral * Radiology Services (Routine) - Closed Specialty Diagnoses / Procedures Referred By Contac t Referred To Contact Diagnoses AAA (abdominal aortic aneurysm) without rupture S/P AAA repair Procedures US AORTA US AORTA Wilder Walton MD Referral ID Status Reason Start Date Expiration Date Visits Re quested Visits Authorized [id number] Closed 04/15/2018 05/16/2019 1 1 Encounter Details Date Type Department Care Team (Late st Contact Info) Description 05/15/2018 Ancillary Orders [facility] Cardiac Thoracic Vascular Surg [facility] [address] [place] [id number] Wilder Walton MD NO ADDRESS ON FILE AAA (abdominal aortic aneurysm) without rupture; S/P AAA repair Social History Tobacco Use Types Packs/Day Years Used Date Smoking Tobacco: Every Day Cigarettes 1 50 Smokeless Tobacco: Never Comments:Currently smokes .5 0 ppd, 03/23/15 Alcohol Use Standard Drinks/Week Comments No 0 (1 standard drink = 0.6 oz pur e alcohol) Comments Unknown Sex and Gender Information Value Date Recorded Sex Assigned at Not on file Legal Sex Female 11:51 AM CDT Gender Identity Not on file Sexual Orientation Not on file Occupation Industry Job Start Date Job End Date Not on file Not on file Not on file Not on file documented as of this encounter Plan of Treatment Not on file documented as of this encounter Results * US AORTA (04/21/2019 8:43 AM MUSIC AGENT) Anatomical Region Laterality Modality Abdomen Ultrasound 04/21/2019 8:43 AM MUSIC AGENT Impressions 04/21/2019 4:10 PM MUSIC AGENT IMPRESSION: Please see below. Exam: US AORTA Date/Time of Exam: 04/21/2019 8:43 AM Reason For Exam: See Diagnosis. Diagnosis: AAA (abdominal aortic aneurysm) without rupture; S/P AAA repair; S/P AAA repair. Findings: Comparison dated 04/15/2018. The bifurcated aortic endograft remains patent. Apparently due to technical factors, velocities could not be obtained at the renal artery origins but color-flow was positive within both kidneys. Flow velocities throughout the endograft are within normal range. Currently the AP diameter of the thrombosed distal aortic aneurysm sac is 2.5 cm. This is unchanged as compared with the previous examination. There is no specific color-flow indication of endoleak. On today's examination, reported AP dimension of the proximal abdominal aorta is 3.2 cm as compared with the previous AP dimension of 2.7 cm. IMPRESSION: 1. Stable patent aortic endograft without evidence of endoleak. 2. The current AP dimension of the proximal abdominal aorta has increased as compared to the prior study. This should be followed on future studies. Narrative Procedure Note Kinga Randolph MD - 04/21/2019 IMPRESSION: Please see below. Exam: US AORTA Date/Time of Exam: 04/21/2019 8:43 AM Reason For Exam: See Diagnosis. Diagnosis: AAA (abdominal aortic aneurysm) without rupture; S/P AAA repair; S/P AAA repair. Findings: Comparison dated 04/15/2018. The bifurcated aortic endograft remains patent. Apparently due to technical factors, velocities could not be obtained at the renal artery origins but color-flow was positive within both kidneys. Flow velocities throughout the endograft are within normal range. Currently the AP diameter of the thrombosed distal aortic aneurysm sac is 2.5 cm. This is unchanged as compared with the previous examination. There is no specific color-flow indication of endoleak. On today's examination, reported AP dimension of the proximal abdominal aorta is 3.2 cm as compared with the previous AP dimension of 2.7 cm. IMPRESSION: 1. Stable patent aortic endograft without evidence of endoleak. 2. The current AP dimension of the proximal abdominal aorta has increased as compared to the prior study. This should be followed on future studies. us Wilder Walton MD ORDERABLES Final Res ult documented in this encounter Visit Diagnoses Diagnosis AAA (abdominal aortic aneurysm) without rupture Abdominal aneurysm without mention of rupture S/P AAA repair Other postprocedural status AAA (abdominal aortic aneurysm) without rupture Abdominal aneurysm without mention of rupture S/P AAA repair Other postprocedural status documented in this encounter Care Teams Gas Torch Brazier Relationship Specialty Start Date End Date Bonilla Felton MD [address] [id number] PCP - General Family Practice 06/12/14 documented as of this encounter
--- OUTSIDE RECORDS SUMMARY | 2025-03-19 09:31 | XMS_ITS | Clinical Summary ---
Author Organization [facility] Address [address] [place] [address] Care Team Providers Care Track Walker Name Role Phone Bonilla Felton MD Primary Care Provider [phone] Allergies No known active allergies Medications benazepril (LOTENSIN) 40 mg tablet Take 40 mg by mouth 2 times daily. Active metoprolol tartrate (LOPRESSOR) 25 mg tablet Take 25 mg by mouth 2 times daily. Active CALCIUM CARBONATE/VITAM IN D3 (CALTRATE 600 + D ORAL) Take by mouth daily. Active ASPIRIN LOW DOSE ORAL Take 81 mg by mouth daily. Active VENTOLIN HFA 90 mcg/actuation inhaler Take 2 Puffs by inhalation every 6 hours as needed. 5 Active cyanocobalamin 1,000 mcg Tablet Take 1,000 mcg by mouth daily. Active amLODIPine (NORVASC) 5 mg tablet Take 5 mg by mouth daily. 0 Active atorvastatin (LIPITOR) 20 mg tablet Take 20 mg by mouth daily. 0 Active lisinopriL (PRINIVIL) 40 mg tablet Take 40 mg by mouth daily. 0 Active Active Problems Problem Noted Date Diagnosed Date S/P AAA repair 03/30/2016 AAA (abdominal aortic aneurysm) without rupture 08/10/2014 H/O right mastectomy 08/10/2014 Tobacco abuse 08/10/2014 HTN (hypertension) 08/10/2014 Hyperlipidemia 08/10/2014 Current smoker 08/10/2014 Immunizations Immunization Administration Dates Next Due Influenza Seasonal Unspecified Formulation IM Social History Tobacco Use Types Packs/Day Years Used Date Smoking Tobacco: Every Day Cigarettes 1 50 Smokeless Tobacco: Never Comments:Currently smokes .5 0 ppd, 11.9.20 Alcohol Use Standard Drinks/Week Comments No 0 [...] file Not on file Not on file Last Filed Vital Signs Vital Sign Reading Time Taken Comments Blood Pressure 118/72 04/26/2020 10:25 AM BOOKMAKER'S CLERK Pulse 106 04/26/2020 10:25 AM BOOKMAKER'S CLERK Temperature 37 C (98.6 F) 08/13/2014 7:00 AM BOOKMAKER'S CLERK Respiratory Rate 16 04/21/2019 8:45 AM BOOKMAKER'S CLERK Oxygen Saturation 90% 04/26/2020 10:25 AM BOOKMAKER'S CLERK Inhaled Oxygen Concentration - - Weight 47.2 kg (104 lb) 04/26/2020 10:25 AM BOOKMAKER'S CLERK Height 154.9 cm (5' 1 ) 04/26/2020 10:25 AM BOOKMAKER'S CLERK Body Mass Index 19.65 04/26/2020 10:25 AM BOOKMAKER'S CLERK Plan of Treatment Health Maintenance Due Date Last Done Comments DTAP/TDAP/TD VACCINES (1 - Tdap) 1954 PNEUMOCOCCAL VACCINE 50+ YEARS (1 of 2 - PCV) 07/24/18 57 ZOSTER VACCINE (1 of 2) 1987 OSTEOPOROSIS SCREENING 2002 RSV VACCINE (60+ or ) (1 - 1-dose 75+ series) 2012 INFLUENZA VACCINE (#1) 2025 04/01/2014 Medical Devices Implanted Type Area Gas Distribution Supervisor Device Identifier Shelf Expiration Date Model / Serial / Lot [place] Ptfe Thck 1.6mmx2.5x2.5cm [id number] - [id number] Implanted:Qty: 1 on 08/10/2014 by Iron Cabrera MD at [facility] Graft Left: Groin CR BARD- [employer]GGIE [employer]ASC [employer] 04/18/2019 [id number] / / [id number] Stnt Zfen P 2 28 109 R 2 Prox Int [id number] - [id number] Implanted:Qty: 1 on 08/10/2014 by Kelly Huffman MD at [facility] Stent N/A: Abdomen COOK- AORTIC INTERVENTION 05/11/2017 [id number] / / [id number] Description:aorta Stent Icast Covered [id number] - [id number] Implanted:Qty: 1 on 08/10/2014 by Kelly Huffman MD at [facility] Stent A[employer]IUM MED AYLA 06/17/2017 [id number] / / Description:renal artery Stent Icast Covered [id number] - [id number] Implanted:Qty: 1 on 08/10/2014 by Kelly Huffman MD at [facility] Stent [employer] MED AYLA 06/17/2017 [id number] / / Description:renal artery Stent Znth Sprl-Z Ilc Leg Gali-44-12-Zt [id number] - Sna Implanted:Qty: 1 on 08/10/2014 by Kelly Huffman MD at [facility] Stent Left: Iliac Artery COOK- AORTIC INTERVENTION 01/15/2017 [id number] / NA / [id number] Description:Implant of endos cular stent to left common iliac artery. SensGard Zenith Fenestrated Graft Implanted:Qty: 1 on 08/10/2014 by Kelly Huffman MD at [facility] 05/11/2017 [id number] / [id number] / Description:aorta pricing per wood [id number] Insurance [facility] MEDIC[facility] PART A AND B Advance Directives For more information, please contact: [phone] Documents on File Type Date Recorded Patient Single Corner Cutter Expl anation Advance Directive POA 08/10/2014 5:12 AM A dvance Directive POA * Full Code (Latest Code Status on File) Date Activated Date Inactivated Comments 08/10/2014 4:13 PM 08/13/2014 1:13 PM Care Teams Track Walker Relationship Specialty Start Date End Date Bonilla Felton MD [address] [place] [phone] PCP - General Family Practice 06/12/14
--- OUTSIDE RECORDS SUMMARY | 2025-03-19 09:31 | XMS_ITS | Clinical Summary ---
Author Organization [facility] Address [address] [facility] Attn: Epic Prelude ADT REED GUAN [address] Care Team Providers Care Extrusion Die Repair Manager Name Role Phone Bonilla Felton MD Primary Care Provider [phone] Allergies No known active allergies Medications albuterol sulfate (VENTOLIN HFA) 90 mcg/Actuation inhaler Take 2 Puffs by inhalation every 6 hours as needed. 5 Active lisinopriL (PRINIVIL) 40 mg tablet Take 40 mg by mouth daily. 0 Active amLODIPine (NORVASC) 5 mg tablet Take 5 mg by mouth daily. 0 Active atorvastatin (LIPITOR) 20 mg tablet Take 20 mg by mouth daily. 0 Active cyanocobalamin 1,000 mcg Tablet Take 1,000 mcg by mouth daily. 7 Active Active Problems Problem Noted Date Diagnosed Date S/P AAA repair 03/30/2016 H/O right mastectomy 08/10/2014 Tobacco abuse 08/10/2014 AAA (abdominal aortic aneurysm) without rupture 08/10/2014 HTN (hypertension) 08/10/2014 Current smoker 08/10/2014 Hyperlipidemia 08/10/2014 Immunizations Immunization Administration Dates Next Due Influenza Seasonal Unspecified Formulation IM Social History Tobacco Use Types Packs/Day Years Used Date Smoking Tobacco: Every Day Cigarettes Smokeless Tobacco: Never Comments:Quit smoking: Curre ntly smokes .50 ppd, 11.9.20 Alcohol Use Standard Drinks/Week Comments No 0 (1 standard drink = 0.6 oz pur e alcohol) Comments Unknown Sex and Gender Information Value Date Recorded Sex Assigned at Not on file Legal Sex Female 5:40 AM BRISTLE MACHINE OPERATOR Gender Identity Not on file Sexual Orientation Not on file Last Filed Vital Signs Vital Sign Reading Time Taken Comments Blood Pressure 118/72 04/26/2020 10:25 AM BRISTLE MACHINE OPERATOR Pulse 106 04/26/2020 10:25 AM BRISTLE MACHINE OPERATOR Temperature 35.6 C (96.1 F) 06/22/2014 11:22 AM BRISTLE MACHINE OPERATOR Respiratory Rate 16 04/21/2019 8:45 AM BRISTLE MACHINE OPERATOR Oxygen Saturation - - Inhaled Oxygen Concentration - - Weight 47.2 kg (104 lb) 04/26/2020 10:25 AM BRISTLE MACHINE OPERATOR Height 154.9 cm (5' 1 ) 04/26/2020 10:25 AM BRISTLE MACHINE OPERATOR Body Mass Index 19.65 04/26/2020 10:25 AM BRISTLE MACHINE OPERATOR Plan of Treatment Health Maintenance Due Date Last Done Comments DTAP/TDAP/TD VACCINES (1 - Tdap) 1954 PNEUMOCOCCAL VACCINE 50+ YEARS (1 of 2 - PCV) 07/24/18 57 ZOSTER VACCINE (1 of 2) 1987 OSTEOPOROSIS SCREENING 2002 RSV VACCINE (60+ or ) (1 - 1-dose 75+ series) 2012 INFLUENZA VACCINE (#1) 2025 04/01/2014 Medical Devices Implanted Type Area Recreation Officer Device Identifier Shelf Expiration Date Model / Serial / Lot [place] Ptfe Thck 1.6mmx2.5x2.5cm [id number] - [id number] Implanted:Qty: 1 on 08/10/2014 by Iron Cabrera MD Graft Left: Groin CR BARD- REGGIE VASC [employer] 04/18/2019 [id number] / / [id number] Stent Icast Covered [id number] - [id number] Implanted:Qty: 1 on 08/10/2014 by Kelly Huffman MD Stent A[employer] MED AYLA 06/17/2017 [id number] / / Description:renal artery Stent Icast Covered [id number] - [id number] Implanted:Qty: 1 on 08/10/2014 by Kelly Huffman MD Stent ATRIUM MED AYLA 06/17/2017 [id number] / / Description:renal artery Stent Znth Sprl-Z Ilc Leg Tllg-08-44-[id number] - Sna Implanted:Qty: 1 on 08/10/2014 by Kelly Huffman MD Stent Left: Iliac Artery COOK- AORTIC INTERVENTION 01/15/2017 [id number] / NA / [id number] Description:Implant of endos cular stent to left common iliac artery. Stnt Zfen P 2 28 109 R 2 Prox Int [id number] - [id number] Implanted:Qty: 1 on 08/10/2014 by Kelly Huffman MD Stent N/A: Abdomen COOK- AORTIC INTERVENTION 05/11/2017 [id number] / / [id number] Description:aorta Cook Medical Zenith Fenestrated Graft Implanted:Qty: 1 on 08/10/2014 by Kelly Huffman MD 05/11/2017 [id number] / [id number] / Description:aortapricing per wood [id number] Insurance MEDICARE PART A AND B Advance Directives For more information, please contact: [phone] Documents on File Type Date Recorded Patient Gas Leak Inspector Helper Expl anation Advance Directive POA 08/10/2014 5:13 AM A dvance Directive POA Care Teams Extrusion Die Repair Manager Relationship Specialty Start Date End Date Bonilla Felton MD [address] [phone] PCP - General Family Practice 06/12/14
--- OUTSIDE RECORDS SUMMARY | 2025-03-19 09:31 | XMS_ITS ---
Author Organization Unknown Medications Date Medication Dosage DosageUnit StartDate StopDate StopReason Active DoseQuantity DoseUnit Dispense DispenseUnit Refills NdcCode DrugCode PharmacyId IsPrescription MappedMedication Srcstatus Custom 2023 12:00 :00 AM albuterol sulfate 2.5 mg/3 ml (0.083 %) solution for nebulizatio n 120.000 000 1 120.25659 0 11 [id number] P ACTIVE 025 12:00 :00 AM hydrocodone 5 mg-acetamin ophen 325 mg tablet 14.0000 00 1 14.008572 0 315356 P ACTIVE 025 12:00 :00 AM metoprolol tartrate 25 mg tablet 180.000 000 09/23/2024 12:00:00 AM 1 180.95106 0 2 [id number] 801 [id number] [facility] P ACTIVE 025 12:00 :00 AM atorvastati n 20 mg tablet 90.0000 00 09/15/2024 12:00:00 AM 1 90.092596 0 658995 05 910 [id number] [facility] P ACTIVE 2023 12:00 :00 AM tramadol 50 mg tablet 14.0000 00 1 14.866177 0 593760 P ACTIVE 025 12:00 :00 AM lisinopril 40 mg tablet 90.0000 00 1 90.845221 3 089694 P ACTIVE 025 12:00 :00 AM ventolin hfa 90 mcg/actuati on aerosol inhaler 1.15415 0 1 1.187303 11 183845 P ACTIVE 2024 12:00 :00 AM breztri aerosphere 160 mcg-9mcg-4. 8mcg/actuat ion hfa aerosol inhaler 10.7000 00 11/28/2024 12:00:00 AM 1 10.137268 2 205797 61 [id number] [facility] P ACTIVE 2024 12:00 :00 AM amlodipine 5 mg tablet 90.0000 00 10/27/2024 12:00:00 AM 1 90.291390 2 219578 16 710 [id number] [facility] P ACTIVE 025 12:00 :00 AM albuterol sulfate hfa 90 mcg/actuati on aerosol inhaler 18.0000 00 08/08/2024 12:00:00 AM 1 18.528421 2 607227 74 [id number] [facility] P ACTIVE 2024 12:00 :00 AM atorvastati n 20 mg tablet 90.0000 00 1 90.342436 3 810536 P ACTIVE 2024 12:00 :00 AM lisinopril 40 mg tablet 90.0000 00 11/28/2024 12:00:00 AM 1 90.182790 2 956659 40 901 [id number] [facility] P ACTIVE 2024 12:00 :00 AM ventolin hfa 90 mcg/actuati on aerosol inhaler 18.0000 00 11/28/2024 12:00:00 AM 1 18.061280 10 019406 68 [id number] [facility] P ACTIVE 06/10 12:00 :00 AM metoprolol tartrate 25 mg tablet 180.000 000 1 180.73992 0 3 [id number] P ACTIVE 025 12:00 :00 AM amlodipine 5 mg tablet 90.0000 00 1 90.324698 3 [id number] P ACTIVE 025 12:00 :00 AM albuterol sulfate 2.5 mg/3 ml (0.083 %) solution for nebulizatio n 360.000 000 09/23/2024 12:00:00 AM 1 360.46223 0 9 [id number] [id number] [facility] P ACTIVE 2024 12:00 :00 AM hydrocodone 5 mg-acetamin ophen 325 mg tablet 14.0000 00 10/24/2024 12:00:00 AM 1 14.779207 0 424089 12 [id number] [facility] P ACTIVE 025 12:00 :00 AM breztri aerosphere 160 mcg-9mcg-4. 8mcg/actuat ion hfa aerosol inhaler 1.06283 0 1 1.271614 5 [id number] P ACTIVE
--- OUTSIDE RECORDS SUMMARY | 2025-03-19 09:31 | XMS_ITS | Encounter Summary ---
Author Organization [facility] Address [address] [place] [address] Care Team Providers Care Fish Cutter Name Role Phone Bonilla Felton MD Primary Care Provider [phone] Reason for Referral * Radiology Services (Routine) - Closed Specialty Diagnoses / Procedures Referred By Contac t Referred To Contact Diagnoses AAA (abdominal aortic aneurysm) without rupture S/P AAA repair Procedures US [facility] Wilder Walton MD Referral ID Status Reason Start Date Expiration Date Visits Re quested Visits Authorized [id number] Closed 04/21/2020 05/22/2021 1 1 THCARE EDUCATOR Encounter Details Date Type Department Care Team (Late st Contact Info) Description 04/21/2020 Ancillary Orders [facility] Vascular Surgery [place] [address] [place] [address] Wilder Walton MD NO ADDRESS ON FILE [...] of this encounter Results * US AORTA (04/26/2020 9:34 AM HEALTHCARE EDUCATOR) Anatomical Region Laterality Modality Abdomen Ultrasound 04/26/2020 9:34 AM HEALTHCARE EDUCATOR Impressions 04/26/2020 9:57 AM HEALTHCARE EDUCATOR IMPRESSION: Please see below. US AORTA, US AORTA IVC ILIAC DUPLEX LTD, 04/26/2020 9:34 AM . Reason For Exam: See Diagnosis. Diagnosis: AAA (abdominal aortic aneurysm) without rupture; S/P AAA repair; S/P AAA repair. COMPARISON: 04/21/2019 . TECHNIQUE: Real-time multiplanar ultrasonography of the aorta using roberson-scale imaging, supplemented by color and spectral Doppler. . LIMITATIONS: Study designed for aorta and vessels. Remainder of abdomen and retroperitoneum incompletely imaged. . FINDINGS: . Aortic diameter: Proximal: 2.8 x 2.7 cm Mid: 2.6 x 2.6 cm Distal: 2.6 x 2.5 cm . Right iliac artery diameter: 1.6 x 1.6 cm . Left iliac artery diameter: 1.5 x 1.5 cm . . 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 The aneurysm sac is stable in size. No focal increase in peak systolic velocities or evidence of endoleak. . 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 The aneurysm sac is stable and there is no evidence of endoleak. Narrative Procedure Note Daniele Ellis MD - 04/26/2020 IMPRESSION: Please see below. US AORTA, US AORTA IVC ILIAC DUPLEX LTD, 04/26/2020 9:34 AM . Reason For Exam: See Diagnosis. Diagnosis: AAA (abdominal aortic aneurysm) without rupture; S/P AAA repair; S/P AAA repair. COMPARISON: 04/21/2019 . TECHNIQUE: Real-time multiplanar ultrasonography of the aorta using roberson-scale imaging, supplemented by color and spectral Doppler. . LIMITATIONS: Study designed for aorta and vessels. Remainder of abdomen and retroperitoneum incompletely imaged. . FINDINGS: . Aortic diameter: Proximal: 2.8 x 2.7 cm Mid: 2.6 x 2.6 cm Distal: 2.6 x 2.5 cm . Right iliac artery diameter: 1.6 x 1.6 cm . Left iliac artery diameter: 1.5 x 1.5 cm . . 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 The aneurysm sac is stable in size. No focal increase in peak systolic velocities or evidence of endoleak. . 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 The aneurysm sac is stable and there is no evidence of endoleak. us Wilder Walton MD US ORDERABLES Final Res ult documented in this encounter Visit Diagnoses Diagnosis AAA (abdominal aortic aneurysm) without rupture Abdominal aneurysm without mention of rupture S/P AAA repair Other postprocedural status AAA (abdominal aortic aneurysm) without rupture Abdominal aneurysm without mention of rupture S/P AAA repair Other postprocedural status documented in this encounter Care Teams Fish Cutter Relationship Specialty Start Date End Date Bonilla Felton MD [address] [phone] PCP - General Family Practice 06/12/14 documented as of this encounter
--- OUTSIDE RECORDS SUMMARY | 2025-03-19 09:31 | XMS_ITS | Encounter Summary ---
Author Organization [facility] Address [address] [place] [address] Care Team Providers Care Multimedia Services Manager Name Role Phone Bonilla Felton MD Primary Care Provider [phone] Reason for Referral * Outpatient Services (Routine) - Closed Specialty Diagnoses / Procedures Referred By Contac t Referred To Contact Diagnoses AAA (abdominal aortic aneurysm) without rupture S/P AAA repair Procedures US AORTA IVC ILIAC DUPLEX LTD Emilee Sterling NP Referral ID Status Reason Start Date Expiration Date Visits Re quested Visits Authorized [id number] Closed 12/26/2017 01/26/2019 1 1 Encounter Details Date Type Department Care Team (Late st Contact Info) Description 12/26/2017 Ancillary Orders [facility] Cardiac Thoracic Vascular Surg [place] [address] [place] [id number] Emilee Sterling NP NO ADDRESS ON FILE AAA (abdominal aortic [...] of this encounter Results * US AORTA IVC ILIAC DUPLEX LTD (04/15/2018 8:22 AM CDT) Anatomical Region Laterality Modality Abdomen Ultrasound 04/15/2018 8:22 AM CDT Impressions 04/15/2018 2:42 PM CDT IMPRESSION: Please see below. Exam: US AORTA IVC ILIAC DUPLEX LTD Date/Time of Exam: 04/15/2018 8:22 AM Reason For Exam: See Diagnosis. Diagnosis: AAA (abdominal aortic aneurysm) without rupture; S/P AAA repair; S/P AAA repair. Findings: ATTENTION: THE READER IS REFERRED TO A DIFFERENT EXAM FOR THIS INTERPRETATION. This study has been interpreted with the accompanying study of the same day. Please refer to the following exam of the same day: Narrative Procedure Note Kinga Randolph MD - 04/15/2018 IMPRESSION: Please see below. Exam: US AORTA IVC ILIAC DUPLEX LTD Date/Time of Exam: 04/15/2018 8:22 AM Reason For Exam: See Diagnosis. Diagnosis: AAA (abdominal aortic aneurysm) without rupture; S/P AAA repair; S/P AAA repair. Findings: ATTENTION: THE READER IS REFERRED TO A DIFFERENT EXAM FOR THIS INTERPRETATION. This study has been interpreted with the accompanying study of the same day. Please refer to the following exam of the same day: us Emilee Sterling NP US ORDERABLES Final Resu lt documented in this encounter Visit Diagnoses Diagnosis AAA (abdominal aortic aneurysm) without rupture Abdominal aneurysm without mention of rupture S/P AAA repair Other postprocedural status AAA (abdominal aortic aneurysm) without rupture Abdominal aneurysm without mention of rupture S/P AAA repair Other postprocedural status documented in this encounter Care Teams Multimedia Services Manager Relationship Specialty Start Date End Date Bonilla Felton MD [address] [phone] PCP - General Family Practice 06/12/14 documented as of this encounter
--- OUTSIDE RECORDS SUMMARY | 2025-03-19 09:31 | XMS_ITS | Encounter Summary ---
Author Organization [facility] Address [address] [place] [address] Care Team Providers Care Milk Pickup Truck Driver Name Role Phone Bonilla Felton MD Primary Care Provider [phone] Reason for Referral * Radiology Services (Routine) - Closed Specialty Diagnoses / Procedures Referred By Contac t Referred To Contact Diagnoses AAA (abdominal aortic aneurysm) without rupture S/P AAA repair Procedures US AORTA IVC ILIAC DUPLEX LTD Wilder Walton MD Referral ID Status Reason Start Date Expiration Date Visits Re quested Visits Authorized [id number] Closed 04/09/2019 05/09/2020 1 1 Encounter Details Date Type Department Care Team (Late st Contact Info) Description 04/09/2019 Ancillary Orders [facility] Cardiac Thoracic Vascular Surg [place] [address] [place] [phone] Wilder Walton MD NO ADDRESS ON FILE [...] * US AORTA IVC ILIAC DUPLEX LTD (04/21/2019 8:43 AM PHOTOGRAPH RETOUCHER) Anatomical Region Laterality Modality Abdomen Ultrasound 04/21/2019 8:43 AM PHOTOGRAPH RETOUCHER Impressions 04/21/2019 4:10 PM PHOTOGRAPH RETOUCHER IMPRESSION: Please see below. Exam: US AORTA IVC ILIAC DUPLEX LTD Date/Time of Exam: 04/21/2019 8:43 AM Reason [...] IVC ILIAC DUPLEX LTD Date/Time of Exam: 04/21/2019 8:43 AM Reason For Exam: See Diagnosis. Diagnosis: AAA (abdominal aortic aneurysm) without rupture; S/P AAA repair; S/P AAA repair. Findings: ATTENTION: THE READER IS REFERRED TO A DIFFERENT EXAM FOR THIS INTERPRETATION. This study has been interpreted with the accompanying study of the same day. Please refer to the following exam of the same day: Wilder Walton MD US ORDERABLES Final Res ult documented in this encounter Visit Diagnoses Diagnosis AAA (abdominal aortic aneurysm) without rupture Abdominal aneurysm without mention of rupture S/P AAA repair Other postprocedural status AAA (abdominal aortic aneurysm) without rupture Abdominal aneurysm without mention of rupture S/P AAA repair Other postprocedural status documented in this encounter Care Teams Milk Pickup Truck Driver Relationship Specialty Start Date End Date Bonilla Felton MD [address] [phone] PCP - General Family Practice 06/12/14 documented as of this encounter
--- NOTE | 2025-03-19 09:33 | US_ITS ---
WS: [id number] US soft tissue/extremity [id number] REASON FOR EXAM: r ingiunal region hernia FINDINGS: Normal femoral artery and femoral vein. No adenopathy or other solid mass. No bowel identified. US/US soft tissue/extremity [id number] IMPRESSION: No abnormality of the right groin.
[2025-03-19 09:52] LABS: Hematocrit 37.9 % (36-47); Hemoglobin 12.10 g/dL (11.27-16.99); Mean Corpuscular HGB Conc 31.9 g/dL (30-55); Mean Corpuscular Hemoglobin 31.5 pg (27-33); Mean Corpuscular Volume 98.7 fl (85-98); Nucleated Red Blood Cells % 0 %; Platelet Count 161 10^3/cmm (157-399); Red Blood Count 3.84 10^6/uL (3.85-5.65); White Blood Count 5.44 10^3/uL (3.29-11.43)
--- NOTE | 2025-03-19 09:53 | ED_ITS ---
HPI - Extremity Problem 2 General: Chief complaint: Extremity Problem,Nontraumatic Stated complaint: right upper leg pain Time Seen by Provider: 03/19/25 09:22 History of Present Illness: 89-year-old female presents emergency ro om complaining of right groin pain. Started last night. She took a half of a hydrocodone. Still has pain in the groin she had since the ambulance picked her up it started to improve. Pain caused her to have difficulty walking. She also states she noted a palpable lump in the groin region. She denies any dysuria urgency or frequency no back pain. No vomiting she still has had regular stools. Patient has a history of breast cancer and skin cancer. Associated symptoms: Deny chest pain, fever(s) or rash Related Data Home Medications ?Medication ?Instructions ?Recorded ?Confirmed aspirin 81 mg tablet,delayed 81 mg PO BEDTIME 08/11/20 03/19/25 release atorvastatin 20 mg tablet 20 mg PO BEDTIME 08/11/20 metoprolol tartrate 25 mg tablet 25 mg PO BID 08/11/20 03/19/25 budesonide 160 mcg-glycopyr 9 1 inh inhalation BID 03/19/25 mcg-formot 4.8 mcg/actuation HFA inhaler ([employer]reztri [employer]) lisinopril 40 mg tablet 40 mg PO DAILY 01/31/2208/12 albuterol sulfate 2.5 mg/3 mL 2.5 mg continuous nebuli zation QID 03/19/25 03/19/25 (0.083 %) solution for nebulization amlodipine 5 mg tablet 5 mg PO DAILY 03/19/2503/19 Previous Rx's ?Medication ?Instructions ?Recorded albuterol sulfate 90 mcg/actuation 2 puff inhalation Q 6H PRN prn #0 08/15/20 aerosol inhaler grams diclofenac sodium 75 mg 75 mg PO Q12H PRN pain #20 t abs 03/19/25 tablet,delayed release Allergies Allergy/AdvReac Type Severity Reaction Status Date / Time tramadol Allergy Unknown Verified 07/10/22 08:13 Review of Systems 2 Const: Denies: fever(s) or chills Card: Denies: chest pain Resp: Denies: dyspnea GI: Denies: abdominal pain : Denies: dysuria, urinary frequency or urinary urgency Musc: Denies: neck pain or back pain Skin/Breast: Denies: rash PFSH ED 2 PFSH: Medical History History of nonmelanoma skin cancer COPD (chronic obstructive pulmonary disease) Aneurysm, thoracic aortic s/p coiling 2017 Hyperlipidemia Breast cancer Hypertension Social History Smoking and tobacco/nicotine status: never used tobacco/nicotine Physical Exam 2 Const: GENERAL APPEARANCE: cooperative ORIENTATION/CONSCIOUSNESS: Yes awake, Yes oriented to person, Yes oriented to place and Yes oriented to time HENMT: COMMON NORMALS: normocephalic, atraumatic and hearing grossly normal bilaterally HEAD & SCALP: normocephalic and atraumatic Resp: COMMON NORMALS: normal respiratory effort, No retractions, No use of accessory muscles and clear to auscultation bilaterally AUSCULTATION: clear to auscultation bilaterally Cardio: COMMON NORMALS: regular rate, regular rhythm and No murmurs present (Cardio) RATE: regular rate RHYTHM: regular rhythm GI: COMMON NORMALS: Soft to palpation and No hepatosplenomegaly present A USCULTATION: Yes normoactive bowel sounds PALPATION: Yes Soft to palpation, No Tenderness to palpation present (GI), No Guarding due to palpation present (GI) and Yes No hepatosplenomegaly present Extremity: COMMON NORMALS: normal to inspection, capillary refill normal, no clubbing, cyanosis or edema, no calf tenderness and no pedal edema OTHER: Palpable firm mass in the ilioinguinal crease adjacent to the femoral artery. Suspicious for femoral ring hernia Neuro: SENSORIUM/ORIENTATION: Yes oriented to person, Yes oriented to place and Yes oriented to time Skin: COMMON NORMALS: no rashes or lesions noted GENERAL SKIN EXAM: no rashes or lesions noted Course 2 Vital Signs: Vital signs: Vital Signs Temperature 98.5 F 03/19/25 09:21 Pulse Rate 67 03/19/25 13:00 Respiratory Rate 17 03/19/25 09:21 Blood Pressure 152/88 03/19/25 13:00 Pulse Oximetry 98 03/19/25 13:00 Oxygen Delivery Me thod Nasal Cannula 03/19/25 11:30 Oxygen Flow Rate 4 03/19/25 11:30 MDM - Extremity (Nontraumatic) Medical Decision Making Ultrasound shows prominent femoral artery with good vascular flow. Patient previously has had a stent in the femoral artery. CT shows no acute finding in that area pain is reproducible with palpation of the ilioinguinal ligament region. Give patient pain medications to use as needed. Reviewing CT after discharge noted finding of spiculated mass that had been followed in the past. Will contact patient to that they need to have a follow- up with her primary care doctor regarding the finding in the lower portion of the lung seen on the CT. and the body reported describes a new left spiculated mass. I contacted Dr. Felton her primary care doctor he states they are aware of these and she is elected approximately 2 years ago not to do any further follow- up but he will address this with her as an potentially new finding to see if she has had any change in perspective on following these up. Medical Records I reviewed the patient's medical records. Lab Data I reviewed the patient's lab results. 03/19/25 09:43 03/19/25 09:43 Radiology Impressions Soft Tissue Ultrasound 03/19/25 09:33 IMPRESSION: No abnormality of the right groin. Abdomen/Pelvis CT 03/19/25 10:50 IMPRESSION: New right lung mass. Patient has been serially followed for years for multiple pulmonary nodules which have very slowly increased in number and size. The current lung mass developed from a smaller nodule seen on the previous examination of 03/29/2023. Aortic endovascular aortic and iliac stents appear relatively unchanged compared to 04/05/2021 and there is good distal flow without evidence of thrombus or significant obstruction. No acute abdominal or pelvic hemorrhage or inflammatory process is identified. Laboratory Results WBC 5.44 10^3/uL (3.29-11.43) 03/19/25 09:43 RBC 3.84 10^6/uL (3.85-5.65) L 03/19/25 09:43 Hgb 12.10 g/dL (11.27-16.99) 03/19/25 09:43 Hct 37.9 % (36-47) 03/19/25 09:43 MCV 98.7 fl (85-98) H 03/19/25 09:43 MCH 31.5 pg (27-33) 03/19/25 09:43 MCHC 31.9 g/dL (30-55) 03/19/25 09:43 RDW 12.5 % (12.1-15.1) 03/19/25 09:43 Plt Count 161 10^3/cmm (157-399) 03/19/25 09:43 MPV 10.2 fL (7.4-10.4) 03/19/25 09:43 Neut % (Auto) 76.7 % 03/19/25 09:43 Lymph % (Auto) 12.5 % 03/19/25 09:43 [place] % (Auto) 7.2 % 03/19/25 09:43 Eos % (Auto) 1.7 % 03/19/25 09:43 Baso % (Auto) 1.5 % 03/19/25 09:43 Neut # (Auto) 4.18 10^3/uL (1.8-7.7) 03/19/25 09:43 Lymph # (Auto) 0.7 10^3/uL (0.8-4.8) L 03/19/25 09:43 [place] # (Auto) 0.4 10^3/uL (0.2-0.9) 03/19/25 09:43 Eos # (Auto) 0.1 10^3/uL (0.0-0.8) 03/19/25 09:43 Baso # (Auto) 0.1 10^3/uL (0.0-0.1) 03/19/25 09:43 Nucleated RBC % (auto) 0 % 03/19/25 09:43 Nucleated RBCs # 0.0 /100WBC 03/19/25 09:43 Sodium 142 mmol/L (136-145) 03/19/25 09:43 Potassium 3.6 mmol/L (3.5-5.1) 03/19/25 09:43 Chloride 104 mmol/L (98-107) 03/19/25 09:43 Carbon Dioxide 27 mmol/L (22-29) 03/19/25 09:43 Anion Gap 14.6 (5-19) 03/19/25 09:43 BUN 17 mg/dL (8-23) 03/19/25 09:43 Creatinine 0.5 mg/dL (0.5-0.9) 03/19/25 09:43 GFR Calculation Not Reportable 03/19/25 09:43 Glucose 105 mg/dL (65-115) 03/19/25 09:43 Calculated Osmolality 296 mOsm/kg (285-295) H 03/19/25 09:43 Lactic Acid 1.4 mmol/L (0.5-2.2) 03/19/25 09:43 Calcium 9.1 mg/dL (8.5-10.5) 03/19/25 09:43 Total Bilirubin 0.3 mg/dL (0.15-1.2) 03/19/25 09:43 AST 21 U/L (0-32) 03/19/25 09:43 ALT 19 U/L (0-33) 03/19/25 09:43 Alkaline Phosphatase 147 U/L (35-105) H 03/19/25 09:43 Total Protein 6.9 g/dL (6.6-8.7) 03/19/25 09:43 Albumin 4.4 g/dL (3.5-5.2) 03/19/25 09:43 Globulin 2.5 g/dL (1.3-4.6) 03/19/25 09:43 Urine Color Yellow (Yellow) 03/19/25 12:19 Urine Appearance Clear (CLEAR) 03/19/25 12:19 Urine pH 8.0 (5-7) A 03/19/25 12:19 Ur Specific [place] 1.028 (1.005-1.030) 03/19/25 12:19 Urine Protein Negative (Negative) 03/19/25 12:19 Urine Glucose (UA) Negative (Normal) 03/19/25 12:19 Urine Ketones Negative (Negative) 03/19/25 12:19 Urine Blood Negative (Negative) 03/19/25 12:19 Urine Nitrate Negative (Negative) 03/19/25 12:19 Urine Bilirubin Negative (Negative) 03/19/25 12:19 Urine Urobilinogen 0.2 mg/dL (Negative) 03/19/25 12:19 Ur Leukocyte Esterase Negative (Negative) 03/19/25 12:19 Amorphous Sediment Not Reportable 03/19/25 12:19 All radiology interpretation(s) finalized by discharge Discharge Plan Discharge Patient Disposition: Home Clinical Impression: Ilio-inguinal strain Condition: Stable Prescriptions: New diclofenac sodium 75 mg tablet,delayed release (DR/EC) 75 mg PO Q12H PRN (Reason: pain) Qty: 20 0RF No Action atorvastatin 20 mg tablet 20 mg PO BEDTIME aspirin 81 mg Tablet,Delayed Release (Dr/Ec) 81 mg PO BEDTIME metoprolol tartrate 25 mg tablet 25 mg PO BID albuterol sulfate 90 mcg/actuation HFA aerosol inhaler 2 puff INHALATION Q6H PRN (Reason: prn) Qty: 0 0RF albuterol sulfate 2.5 mg /3 mL (0.083 %) solution for nebulization 2.5 mg continuous nebulization QID amlodipine 5 mg tablet 5 mg PO DAILY lisinopril 40 mg tablet 40 mg PO DAILY Breztri [employer] 160-9-4.8 mcg/actuation HFA aerosol inhaler 1 inh INHALATION BID Discharge Orders: Discharge ED (Routine); Ordered 03/19/25 Ordered By: Freddy Orourke Referrals: Bonilla Felton MD [Primary Care Provider, Family Practice] Discharge Diet: Usual diet Discharge Activity: Increase activity as tolerated Patient Instructions: Opioid Safety, Pain Management, Patient Portal & Pamela Instructions Activity Restrictions/Additional Instructions: Thank you for choosing [facility] for your healthcare needs today. It is very important that you follow up as instructed or that you return to the Emergency Department should you have concerns or if your condition changes or worsens in any way. Emergency department visits are focused on emergent conditions, in some cases you may require further evaluation on an outpatient basis. You were seen in the emergency room with discomfort in your right groin. On initial exam there is a palpable mass in the inguinal region and is exquisitely tender. Ultrasound did not show any abnormalities. CT of your abdomen pelvis shows that the palpable mass is actually the stent in your femoral artery. No other significant abnormality noted. I suspect you strained and a ligament in the inguinal region. Will give you tramadol to use as needed for this. (Please note that included in your discharge packet is information concerning opioid safety and pain management. This information is given to all patients were discharged from the ER regardless of their discharge diagnosis or the medicines they usually take or are prescribed.) Print Language: Cypriot Coding Level of Care Code ED Business Center Manager for Flavio Bowen
[2025-03-19 10:16] LABS: Alanine Aminotransferase 19 U/L (0-33); Albumin Level 4.4 g/dL (3.5-5.2); Alkaline Phosphatase 147 U/L (35-105); Anion Gap 14.6 (5-19); Aspartate Amino Transferase 21 U/L (0-32); Blood Urea Nitrogen 17 mg/dL (8-23); Calcium 9.1 mg/dL (8.5-10.5); Carbon Dioxide 27 mmol/L (22-29); Chloride 104 mmol/L (98-107); Creatinine Clr Calc Pharmacy 28.3807; Globulin 2.5 g/dL (1.3-4.6); Glucose 105 mg/dL (65-115); Osmolality Calculated 296 mOsm/kg (285-295); Potassium 3.6 mmol/L (3.5-5.1); Sodium 142 mmol/L (136-145); Total Protein 6.9 g/dL (6.6-8.7)
[2025-03-19 10:17] LABS: Lactic Sepsis W/Reflex 1.4 mmol/L (0.5-2.2)
--- NOTE | 2025-03-19 10:50 | CT_ITS ---
WS: [id number] CT abdomen pelvis w con* [id number] REASON FOR EXAM: abd pain IV CONTRAST ADMINISTERED: 80 mL of Omnipaque 350 TECHNIQUE: Multiple axial images were obtained after the intravenous administration of contrast. Coronal and sagittal reconstructions. COMPARISON EXAMINATION: 03/29/2023 and 04/05/2021 TOTAL EXAM DLP: 258.[address] scans at [facility] use at least one of these dose optimization techniques: automated exposure control; mA and/or kV adjustment per patient size (includes targeted exams where dose is matched to clinical indication); or iterative reconstruction. FINDINGS: CHEST: Compared to previous examination of 03/29/2023 there is now a solid 17 x 17 mm spiculated mass in the lateral inferior left lower lobe. Previously much smaller ill-defined nodular opacity at this location. ABDOMEN: No significant abnormality of the liver, spleen, pancreas. Significant distention of the gallbladder without calculi. Normal adrenals. Small renal cysts. No hydronephrosis or renal calculi. No abdominal mass, adenopathy, focal fluid collection, or free fluid. Endovascular aortic and iliac stents. The stents appear unchanged compared to 04/05/2021. There is good opacification in the aortic and iliac limbs. There is good opacification of the distal [place] arteries with no thrombus or high-grade stenosis. Multiple areas of moderate stenosis secondary to calcified plaque with minimal interval change compared to the previous examination. PELVIS: No mass, adenopathy, focal fluid, or free fluid collection. 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 No focal bony lesion within the pelvis. CT/CT abdomen pelvis w con* [id number] IMPRESSION: New right lung mass. Patient has been serially followed for years for multiple pulmonary nodules which have very slowly increased in number and size. The curr ent lung mass developed from a smaller nodule seen on the previous examination of 03/29/2023. Aortic endovascular aortic and iliac stents appear relatively unchanged compare d to 04/05/2021 and there is good distal flow without evidence of thrombus or s ignificant obstruction. No acute abdominal or pelvic hemorrhage or inflammatory process is identified.
[2025-03-19] MEDS: iohexol 350 mg/mL 500 mL Btl (per mL) IV (11:58)
[2025-03-19 12:24] LABS: Add Urine Microscopic? NO
[2025-03-19 12:29] LABS: Glucose Urine UA Negative (Normal); Nitrate Urine Negative (Negative); Specific Gravity, Urine 1.028 (1.005-1.030)
[2025-03-19 13:01] LABS: Charge for UA Resulting for Rev
--- NOTE | 2025-03-25 11:36 | PC.NURSE ---
Dr. Orourke requested that I call pt and have her follow up with her PCP Dr. Felton with concern that her left lung small nodule had changes from the last scan. This nurse called pt she verbalized understanding and said she would call Dr. Felton. Dr. Orourke will call Dr. Felton for a doc to doc as well.
== END 2025-03-19 13:02 | disposition home or self-care (01) ==
PROVIDERS: Emergency Provider Family Medicine; PCP Family Medicine
DX: S76.811A Strain of other specified muscles, fascia and tendons at thigh level, right thigh, initial encounter (principal); Z79.82 Long term (current) use of aspirin; E78.5 Hyperlipidemia, unspecified; J44.9 Chronic obstructive pulmonary disease, unspecified; I10 Essential (primary) hypertension; Z85.828 Personal history of other malignant neoplasm of skin; Z85.3 Personal history of malignant neoplasm of breast; X58.XXXA Exposure to other specified factors, initial encounter
CPT/HCPCS: 36415; 74177; 76882; 80053; 81003; 83605; 85025; 99285